=== PATIENT | male | born 1935 | race Caucasian/White ===

== ENCOUNTER 2020-06-11 15:26 | Inpatient (IN) ==
[2020-06-11] MEDS ORDERED: 0.9 % SODIUM CHLORIDE 1,000 ML IV ONE (15:36)
--- NOTE | 2020-06-11 16:11 | Emergency Department Note ---
Weakness HPI General Chief complaint: Weakness Stated complaint: weakness Time Seen by Provider: 06/11/20 15:36 Source: patient Mode of arrival: ambulatory Limitations: no limitations History of Present Illness HPI Narrative: Narrative: 85-year-old male comes in for 1 week history of weakness. He is having diarrhea x5 days. He has significant Parkinson's and has decompensated over the last few days. He is having trouble standing up and walking. He fell 3 times today and has several skin tears on his arms secondary to that. He did not hit his head or lose consciousness. Blood pressure is very low. He arrives with IV fluids going via EMS. Denies fever or recent exposure to Covid. He is requiring oxygen saturations in the low 70s He was seen 2 days ago for routine appointment at the [facility]. His brings in a medicine list from [facility] neurology clinic last month-he sees Dr. Foreman. 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 Related Data Home Medications Medication Instructions Recorded Confirmed albuterol sulfate 90 mcg/actuation 2 puff INHALATION Q4H PRN g 04/22/16 06/11/20 aerosol inhaler montelukast 10 mg tablet 10 mg PO QHS 05/11/16 06/11/20 gabapentin 300 mg capsule 300 mg PO BID cap 07/05/17 01/16/20 amlodipine 5 mg tablet 5 mg PO QDAY 12/24/18 06/11/20 budesonide-formoterol HFA 160 2 puff INHALATION BID 12/24/18 06/11/20 mcg-4.5 mcg/actuation aerosol inhaler losartan 100 mg tablet 100 mg PO QDAY 12/24/18 06/11/20 lutein 10 mg tablet 10 mg PO QDAY 12/24/18 06/11/20 nitroglycerin 0.4 mg sublingual 0.4 mg SUBLINGUAL ONCE PRN tab 12/24/18 01/16/20 tablet ropinirole 0.25 mg tablet 0.25 mg PO BID tab 12/24/18 06/11/20 rosuvastatin 10 mg tablet 10 mg PO QDAY 12/24/18 06/11/20 isosorbide mononitrate 30 mg 30 mg PO QDAY tab 01/18/19 01/16/20 tablet,extended release 24 hr omeprazole 20 mg capsule,delayed 20 mg PO QDAY cap 01/18/19 01/16/20 release tretinoin 0.05 % topical cream 1 applic TOPICAL QHS PRN 03/20/19 01/16/20 citalopram 10 mg PO QDAY 06/11/20 06/11/20 coenzyme Q10 10 mg PO ONCE 06/11/20 06/11/20 Allergies Allergy/AdvReac Type Severity Reaction Status Date / Time simvastatin Allergy Unknown Unknown Verified 01/16/20 15:54 statins AdvReac Intermediate Cramping Uncoded 01/16/20 12:52 of the Muscles Review of Systems ROS ROS Narrative: Narrative: All systems ED: reviewed and negative except as stated. PFSH Narrative Patient History Narrative: Narrative: Medical/Surgical/Family History All Active Problems (Updated 06/11/20 @ 17:52 by Cameron Chang MD) Fall (Acute) Acute hypotension (Acute) Skin tear of forearm without complication (Acute) Respiratory failure (Acute) Acute renal failure (Acute) Benign hypertension with CKD (chronic kidney disease) stage III (Chronic) Laceration (Acute) Chronic kidney disease, stage III (moderate) (Chronic) Gastric diverticulum (Chronic) Hepatic cyst (Chronic) Ingrown toenail (Chronic) Colon malignancy (Chronic) Diverticulosis (Chronic) Sleep apnea (Chronic) 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) Hyperlipidemia (Chronic) Erectile dysfunction (Chronic) Pacemaker (Chronic) Carotid bruit (Chronic) Hypertension (Chronic) Tremor (Chronic) Muscle weakness (Chronic) 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) Salivary gland disturbance (Chronic) Paresthesia (Chronic) Dysphagia (Chronic) Abnormal gait (Chronic) Parkinsonism (Chronic) Tinea pedis (Chronic) Callus of foot (Chronic) Onychomycosis (Chronic) Metatarsalgia (Chronic) Hallux limitus (Chronic) Hallux valgus with bunions (Chronic) Neuropathy (Chronic) Actinic keratosis (Chronic) Lentigo (Chronic) Hemangioma (Chronic) Neoplasm of skin (Chronic) Seborrheic keratosis (Chronic) Skin cancer (Chronic) Interstitial pulmonary disease (Chronic) Chest pain (Chronic) Asthma (Chronic) Bronchitis (Chronic) Gastroesophageal reflux (Chronic) Hypercholesterolemia (Chronic) Hypertension, essential, benign (Chronic) History of prostate cancer (Chronic 12/03/12) Malignant neoplasm prostate (Chronic) Benign neoplasm of skin (Chronic) Urethral stricture, postoperative (Chronic) Urinary incontinence (Chronic) Medical History Abnormal gait (Chronic) Actinic keratosis (Chronic) Asthma (Chronic) Benign neoplasm of skin (Chronic) Bronchitis (Chronic) Callus of foot (Chronic) Carotid bruit (Chronic) Colon malignancy (Chronic) Diverticulosis (Chronic) Dysphagia (Chronic) Erectile dysfunction (Chronic) Gastric diverticulum (Chronic) Gastroesophageal reflux (Chronic) Hallux limitus (Chronic) Hallux valgus with bunions (Chronic) Hemangioma (Chronic) Hepatic cyst (Chronic) History of prostate cancer (Chronic 12/03/12) Hypercholesterolemia (Chronic) Hyperlipidemia (Chronic) Hypertension (Chronic) Hypertension, essential, benign (Chronic) Ingrown toenail (Chronic) Interstitial pulmonary disease (Chronic) Lentigo (Chronic) Lumbosacral disc herniation (Chronic) Malignant neoplasm prostate (Chronic) Metatarsalgia (Chronic) Muscle weakness (Chronic) Neoplasm of skin (Chronic) Neuropathy (Chronic) Onychomycosis (Chronic) Pacemaker (Chronic) Paresthesia (Chronic) Parkinsonism (Chronic) 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) Salivary gland disturbance (Chronic) Seborrheic keratosis (Chronic) Skin cancer (Chronic) Sleep apnea (Chronic) Tinea pedis (Chronic) Tremor (Chronic) Urethral stricture, postoperative (Chronic) Urinary incontinence (Chronic) Surgical History History of appendectomy (Chronic ~1938) History of cataract surgery (Chronic ~1987) History of colon resection (Chronic ~1985) History of prostatectomy (Chronic ~1989) History of surgery (Chronic ~02/27/12) Left Clavicle Excision Neck Excision Hx of arterial dissection (Chronic) Hx of CABG (Chronic) No significant past surgical history (Inactive) S/P cataract surgery (Chronic) S/P placement of cardiac pacemaker (Chronic) 2014 Status post fracture of pelvis (Chronic) Family History Son Heart disease Daughter COPD (chronic obstructive pulmonary disease) Social History Smoking Status: Former smoker Alcohol Intake Frequency: 2+ drinks per day Substance Use: does not use Exam Narrative Narrative: Narrative: Thin male no acute distress. Soft-spoken consistent with his Parkinson's. He has a resting tremor. Normocephalic atraumatic. Conjunctive are clear sclerae white nonicteric. No nasal discharge or congestion. Wearing nasal cannula oxygen. Oropharynx pink and moist. Neck is supple without lymphadenopathy or thyromegaly. Heart is regular rate and rhythm. No murmur appreciated. Lungs are clear to auscultation bilaterally except for the bilateral lower pop which do have some subtle crackles. His hands are cold so it is difficult to get a good Plath on the pulse oximeter. Abdomen is soft nontender not distended. No peritoneal signs or guarding. No pedal edema. On his left arm he is got several skin tears 1 on the triceps area and one on the lateral forearm proximally. These were bandaged. General Limitations: no limitations Course Vital Signs Vital signs: Vital Signs Temperature 97.7 F 06/11/20 15:28 Pulse Rate 79 06/11/20 15:28 Respiratory Rate 18 06/11/20 15:28 Blood Pressure 89/53 06/11/20 15:28 Pulse Oximetry (%) 93 06/11/20 15:28 Temperature 97.7 F 06/11/20 15:28 Pulse Rate 73 06/11/20 17:16 Respiratory Rate 13 06/11/20 17:16 Blood Pressure 104/46 06/11/20 17:16 Pulse Oximetry (%) 100 06/11/20 17:16 [facility] MDM Narrative Medical decision making narrative: Narrative: He does not complain of any other injuries besides the skin tears on his arm. Concern for weakness and unable to walk over the last week. However this sounds compatible with dehydration from diarrhea, with subsequent hypotension. Chest x-ray shows possible left lower lobe infiltrate but this is equivocal. EKG is unrevealing. laboratory is ordered we will continue fluids. Melva testing for Covid is negative. ABG shows a pH of 7.32 with a PCO2 of 50 PO2 136 at 6 L-respiratory failure with hypoxia hypercapnia and respiratory acidosis. He is a former smoker so is likely a COPD/asthma component to this. We will order a CT scan of the chest no contrast as he has chronic kidney disease. We will get blood cultures and cover him with antibiotics just in case this is sepsis-although at this time I do not see an obvious infection-save the diarrhea. Start Vanco and Zosyn . we will also order [facility] for C. difficile. Blood pressure is responding appropriately to fluids and he does not require pressors at this time Sack Sorter film of the CT of the chest shows dilated loops of small bowel so x-ray series is ordered. Creatinine came back at 2.8 which is acute renal failure. He is got some mild hyperkalemia. I discussed these results with the patient and his . At this time he is DNR/DNI but he is okay with BiPAP if needed. Discussed situation with Dr. Cedillo, radiologist as were trying to sort out whether this is a metabolic acidosis or respiratory acidosis or both. At this time the chest x-ray and chest CT did not show any cardiopulmonary disease that is acute. But blood gas certainly shows an acidosis with hypercapnia and hypoxia-requiring 6 L of oxygen per nasal cannula. As his creatinine is up we cannot do CT of the abdomen pelvis contrast but Dr. Cedillo recommended that we can do oral water as a contrast medium. We will get the scan done to further sort out if he is got a pseudoblockage or some other thing going on in his belly. Consider also Dopplers of the legs for DVT but at this time he is not having leg pain Shift change is coming up and patient will be checked out to Dr. Mai for further care and evaluation. Patient will likely have to be transferred as we are short on ICU bed staffing Lab Data Lab results reviewed: Yes I reviewed the patient's lab results. Result diagrams: 06/11/20 15:55 06/11/20 15:55 Labs: Lab Results 06/11/20 06/11/20 06/11/20 Range/Units 15:55 15:55 15:55 WBC 12.3 H (4.5-11.0) K/mcL RBC 4.33 L (4.50-5.90) M/mcL Hgb 13.4 L (13.5-16.5) g/dL Hct 42.5 (41.0-55.0) % MCV 98.2 (80.0-100.0) fL MCH 30.9 (26.0-34.0) pg MCHC 31.5 (31.0-36.0) g/dL RDW 14.6 H (11.5-14.5) % Plt Count 219 (140-440) K/mcL MPV 9.7 (7.4-10.4) fL Neut % (Auto) 81.5 H (38.0-78.0) % Lymph % (Auto) 10.3 L (15.0-49.0) % [place] % (Auto) 6.8 (1.0-12.0) % Eos % (Auto) 0.9 (0.0-7.0) % Baso % (Auto) 0.5 (0.0-2.0) % Lymph # (Auto) 1.27 L (1.50-4.80) K/mcL [place] # (Auto) 0.84 (0.10-0.90) K/mcL Eos # (Auto) 0.11 (0.00-0.70) K/mcL Baso # (Auto) 0.06 (0.00-0.20) K/mcL Absolute Neutrophils 10.00 H (1.80-8.00) K/mcL VBG Lactic Acid 1.9 (0.5-2.0) mmol/L Sodium 137 (133-145) mmol/L Potassium 5.2 H (3.3-5.1) mmol/L Chloride 98 (96-108) mmol/L Carbon Dioxide 24 (22-30) mmol/L Anion Gap 15.0 (8.0-16.0) BUN 50 H (8-23) mg/dL Creatinine 2.8 H (0.7-1.2) mg/dL GFR Calculation 19 Glucose 123 H (70-105) mg/dL Calcium 9.1 (8.6-10.4) mg/dL Magnesium 2.3 (1.6-2.5) mg/dL Total Bilirubin 0.5 (0.1-1.0) mg/dL AST 14 (<40) U/L ALT 13 (<40) U/L Alkaline Phosphatase 70 (39-117) U/L Total Creatine Kinase (24-195) U/L Troponin T (<0.03) ng/mL C-Reactive Protein 3.40 H (0.03-0.80) mg/dL NT-Pro-B Natriuret Pep 360.6 (<450.0) pg/mL Total Protein 5.9 (5.9-8.4) gm/dL Albumin 3.1 L (3.2-5.2) gm/dL Globulin 2.8 (2.2-3.7) gm/dL Albumin/Globulin Ratio 1.1 (1.0-2.3) TSH 1.55 (0.27-5.01) uIU/mL 06/11/20 06/11/20 Range/Units 15:55 15:55 WBC (4.5-11.0) K/mcL RBC (4.50-5.90) M/mcL Hgb (13.5-16.5) g/dL Hct (41.0-55.0) % MCV (80.0-100.0) fL MCH (26.0-34.0) pg MCHC (31.0-36.0) g/dL RDW (11.5-14.5) % Plt Count (140-440) K/mcL MPV (7.4-10.4) fL Neut % (Auto) (38.0-78.0) % Lymph % (Auto) (15.0-49.0) % [place] % (Auto) (1.0-12.0) % Eos % (Auto) (0.0-7.0) % Baso % (Auto) (0.0-2.0) % Lymph # (Auto) (1.50-4.80) K/mcL [place] # (Auto) (0.10-0.90) K/mcL Eos # (Auto) (0.00-0.70) K/mcL Baso # (Auto) (0.00-0.20) K/mcL Absolute Neutrophils (1.80-8.00) K/mcL VBG Lactic Acid (0.5-2.0) mmol/L Sodium (133-145) mmol/L Potassium (3.3-5.1) mmol/L Chloride (96-108) mmol/L Carbon Dioxide (22-30) mmol/L Anion Gap (8.0-16.0) BUN (8-23) mg/dL Creatinine (0.7-1.2) mg/dL GFR Calculation Glucose (70-105) mg/dL Calcium (8.6-10.4) mg/dL Magnesium (1.6-2.5) mg/dL Total Bilirubin (0.1-1.0) mg/dL AST (<40) U/L ALT (<40) U/L Alkaline Phosphatase (39-117) U/L Total Creatine Kinase 38 (24-195) U/L Troponin T 0.05 H* (<0.03) ng/mL C-Reactive Protein (0.03-0.80) mg/dL NT-Pro-B Natriuret Pep (<450.0) pg/mL Total Protein (5.9-8.4) gm/dL Albumin (3.2-5.2) gm/dL Globulin (2.2-3.7) gm/dL Albumin/Globulin Ratio (1.0-2.3) TSH (0.27-5.01) uIU/mL Radiology Data Radiology results reviewed: Yes I reviewed the patient's radiology results. Radiology results narrative: Chest x-ray :mostly clear lungs with evidence of previous open heart surgery and pacemaker. Possible left lower lung infiltrate. When compared to previous this is equivocal CT scan of the chest as above. X-ray of the abdomen shows ileus pattern EKG Data EKG #1: EKG attestation: Yes I reviewed and interpreted this EKG. and Yes There are no EKG findings of acute coronary syndrome EKG results narrative: He has a pacemaker but currently not being paced. Machine is calling it atrial fibrillation but I am seeing P waves. Suspect sinu s rhythm with a right bundle branch block. Fortunately artifact limits reading. We tried multiple times to get a better EKG but this was difficult secondary to tremor from Parkinson's. Compared this with previous from 18 months ago and this is likely actually a bifascicular block Discharge Plan Patient/Caregiver Discharge Instructions Pt seen by [facility]/PA only: No Clinical Impression: Respiratory failure, Parkinsonism, Fall, Acute hypotension, Skin tear of forearm without complication, Acute renal failure Patient Disposition: Still a Patient Condition: Fair Follow up with: Mariela Chang ARNP [Primary Care Provider] - Prescriptions: No Action albuterol sulfate 90 mcg/actuation HFA aerosol inhaler 2 puff INHALATION Q4H PRN (Reason: Shortness Of Breath) RF: 0 Symbicort 160-4.5 mcg/actuation HFA aerosol inhaler 2 puff INHALATION BID RF: 0 losartan 100 mg tablet 100 mg PO QDAY RF: 0 amlodipine 5 mg tablet 5 mg PO QDAY RF: 0 ropinirole 0.25 mg tablet 0.25 mg PO BID RF: 0 rosuvastatin 10 mg tablet 10 mg PO QDAY RF: 0 nitroglycerin [Nitrostat] 0.4 mg tablet, sublingual 0.4 mg SUBLINGUAL ONCE PRNRF: 0 lutein 10 mg tablet 10 mg PO QDAY RF: 0 tretinoin 0.05 % cream 1 applic TOPICAL QHS PRNRF: 0 isosorbide mononitrate 30 mg tablet extended release 24 hr 30 mg PO QDAY RF: 0 omeprazole 20 mg capsule,delayed release(DR/EC) 20 mg PO QDAY RF: 0 citalopram 10 mg Tablet 10 mg PO QDAY RF: 0 coenzyme Q10 10 mg Capsule 10 mg PO ONCE RF: 0 montelukast [Singulair] 10 mg tablet 10 mg PO QHS RF: 0 gabapentin 300 mg capsule 300 mg PO BID RF: 0
--- NOTE | 2020-06-11 16:26 | XRay Report ---
CLINICAL INFORMATION: weakness COMPARISON: 12/10/2018 FINDINGS: Pacemaker leads in stable satisfactory position. Heart size, mediastinum and pulmonary vessels are normal. Right diaphragm is chronically elevated with minimal bibasilar atelectasis. No effusion IMPRESSION: No acute disease Interpreted and Authenticated by: Anival Cedillo 06/11/20
[2020-06-11 17:03] LABS: Basophils # (Auto) 0.06 K/mcL (0.00-0.20); Basophils % (Auto) 0.5 % (0.0-2.0); Eosinophils # (Auto) 0.11 K/mcL (0.00-0.70); Eosinophils % (Auto) 0.9 % (0.0-7.0); Hematocrit 42.5 % (41.0-55.0); Hemoglobin 13.4 g/dL (13.5-16.5); Lymphocytes # (Auto) 1.27 K/mcL (1.50-4.80); Lymphocytes % (Auto) 10.3 % (15.0-49.0); Mean Cell Volume 98.2 fL (80.0-100.0); Mean Corpuscular HGB Conc 31.5 g/dL (31.0-36.0); Mean Platelet Volume 9.7 fL (7.4-10.4); Monocytes # (Auto) 0.84 K/mcL (0.10-0.90); Monocytes % (Auto) 6.8 % (1.0-12.0); Neutrophils % (Auto) 81.5 % (38.0-78.0); Platelet Count 219 K/mcL (140-440); RBC 4.33 M/mcL (4.50-5.90); Red Cell Distribution Width 14.6 % (11.5-14.5); WBC 12.3 K/mcL (4.5-11.0)
[2020-06-11 17:12] LABS: proBNP 360.6 pg/mL (<450.0)
[2020-06-11] MEDS ORDERED: PIPERACILLIN SODIUM/TAZOBACTAM 3.375 GM in DEXTROSE 5% IN WATER 50 ML IV ONE (17:14)
[2020-06-11] MEDS ORDERED: VANCOMYCIN 1,000 MG in 0.9 % SODIUM CHLORIDE 250 ML IV ONE (17:14)
[2020-06-11 17:24] LABS: ALT/SGPT 13 U/L (<40); AST/SGOT 14 U/L (<40); Albumin 3.1 gm/dL (3.2-5.2); Albumin/Globulin Ratio 1.1 (1.0-2.3); Alkaline Phosphatase 70 U/L (39-117); Bilirubin,Total 0.5 mg/dL (0.1-1.0); Blood Urea Nitrogen 50 mg/dL (8-23); Calcium 9.1 mg/dL (8.6-10.4); Carbon Dioxide 24 mmol/L (22-30); Chloride 98 mmol/L (96-108); Globulin 2.8 gm/dL (2.2-3.7); Glomerular Filtration Rate 19; Glucose 123 mg/dL (70-105); Thyroid Stimulating Hormone 1.55 uIU/mL (0.27-5.01)
--- NOTE | 2020-06-11 17:58 | Cat Scan Report ---
CLINICAL INFORMATION: Dyspnea COMPARISON: None TECHNIQUE: 0.625 mm axial slices were obtained from the lung apices through the bases without intravenous contrast. 2.5 mm Sagittal, coronal and axial reformatted images were processed and reviewed at bone, lung and soft tissue windows. 7 mm axial MIP images were also reconstructed to optimize pulmonary nodule detection.The exam was performed using radiation dose optimization techniques including, but not limited to, automated exposure control, adjustment of the mA and/or kV according to patient size and use of iterative reconstruction technique. FINDINGS: Pulmonary parenchymal windows show moderate periseptal and centrilobular emphysema featuring chronic bronchitis with elevated lung volumes wall thickening dilatation of bronchi. There are scattered bullae in the apical regions and periphery of both lower and right middle lobes. Scattered scarring is also seen in the periphery of the lower lobes with traction bronchiectasis in the distal subsegmental bronchi. There are no infiltrates or significant nodules. Pleural spaces are normal. Mediastinal windows show the heart is mildly enlarged. Valve calcification noted. There is no adenopathy in the mediastinal hilar or axillary region. The esophagus is grossly normal. The noncontrast thoracic aorta and pulmonary arteries are normal in diameter. The thyroid is unremarkable. Bone windows show severe right and moderate left glenohumeral degenerative change. There are no focal osseous lesions Images should the superior abdomen show scattered simple cysts in the liver. There is a 10 cm giant diverticulum projecting from the posterior wall the gastric fundus with rugal fold effacement. IMPRESSION: 1. No acute cardiopulmonary disease. 2. Moderate centrilobular and periseptal emphysema. 3. Cardiomegaly with aortic valve calcification. 4. 10 cm giant diverticulum projecting from the posterior gastric fundus with rugal fold effacement. This is probably clinically insignificant in this elderly gentleman. 5. Scattered small hepatic cysts Interpreted and Authenticated by: Anival Cedillo 06/11/20
--- NOTE | 2020-06-11 18:49 | XRay Report ---
CLINICAL INFORMATION: diarrhea COMPARISON: None. FINDINGS: Small large bowel are dilated to the splenic flexure. Descending and rectosigmoid colon contains no gas. No free air or soft tissue mass. IMPRESSION: Probable atypical ileus. Interpreted and Authenticated by: Anival Cedillo 06/11/20
--- NOTE | 2020-06-11 19:08 | Cat Scan Report ---
CLINICAL INFORMATION: Abdominal pain with metabolic acidosis and abdominal distention. COMPARISON: Abdomen and pelvic CT 09/21/2014 TECHNIQUE: 0.625 mm helical slices were obtained from the mid heart through the subtrochanteric regions. Following reconstruction, 2.5 mm sagittal, coronal and axial reformatted images were processed and reviewed at bone and soft tissue windows.The exam was performed using radiation dose optimization techniques including, but not limited to, automated exposure control, adjustment of the mA and/or kV according to patient size and use of iterative reconstruction technique. FINDINGS: Lung bases show evidence for chronic bronchitis with also scattered bullae in the periphery and scattered scarring. There are no effusions. The heart is moderately enlarged with calcification in the aortic valve. Abdominal images scattered stable cysts throughout the noncontrasted liver ranging up to 15 mm. The gallbladder and bile ducts are normal: CBD is 5 mm. The noncontrasted pancreas, both adrenal glands, kidneys and spleen are unremarkable. The aorta is normal diameter with moderately heavy calcific plaque in the infrarenal region. There is no free air, free fluid or adenopathy Pelvic images show urinary bladder is normal. Radical prostatectomy seen as before. There are multiple sigmoid diverticuli with mild inflammation in the perisigmoid fat in the mid sigmoid colon patible with mild diverticulitis. The right colon is partially resected are anastomosis of the ileum to the mid ascending colon. The stomach small and large bowel are normal caliber - no evidence of bowel obstruction. A 10 cm giant gastric diverticulum projects from the posterior wall of the gastric fundus. It has increased increase in size prior exam. Bone windows show only degenerative change in lumbar spine and the few malunified old fractures of the obturator ring. IMPRESSION: 1. Mild sigmoid diverticulitis. 2. 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 This has increased in size from the previous exam. 3. Partial colectomy changes with cecal resection and ileum preanastomosis the ascending colon. 4. Scattered simple cysts on the liver - stable 5. Emphysema in the lung bases. 6. Radical prostatectomy changes. No evidence of recurrent prostate cancer, adenopathy or metastatic disease 7. 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
--- NOTE | 2020-06-11 19:32 | Emergency Department Note ---
HPI General Chief complaint: Weakness Stated complaint: weakness Time Seen by Provider: 06/11/20 15:36 Source: patient Mode of arrival: ambulatory Limitations: no limitations History of Present Illness HPI Narrative: Narrative: See history and physical dictated by Dr. Chang. I am excepting and taking over care of patient due to change in shift. Related Data Home Medications Medication Instructions Recorded Confirmed albuterol sulfate 90 mcg/actuation 2 puff INHALATION Q4H PRN g 04/22/16 06/11/20 aerosol inhaler montelukast 10 mg tablet 10 mg PO QHS 05/11/16 06/11/20 gabapentin 300 mg capsule 300 mg PO BID cap 07/05/17 01/16/20 amlodipine 5 mg tablet 5 mg PO QDAY 12/24/18 06/11/20 budesonide-formoterol HFA 160 2 puff INHALATION BID 12/24/18 06/11/20 mcg-4.5 mcg/actuation aerosol inhaler losartan 100 mg tablet 100 mg PO QDAY 12/24/18 06/11/20 lutein 10 mg tablet 10 mg PO QDAY 12/24/18 06/11/20 nitroglycerin 0.4 mg sublingual 0.4 mg SUBLINGUAL ONCE PRN tab 12/24/18 01/16/20 tablet ropinirole 0.25 mg tablet 0.25 mg PO BID tab 12/24/18 06/11/20 rosuvastatin 10 mg tablet 10 mg PO QDAY 12/24/18 06/11/20 isosorbide mononitrate 30 mg 30 mg PO QDAY tab 01/18/19 01/16/20 tablet,extended release 24 hr omeprazole 20 mg capsule,delayed 20 mg PO QDAY cap 01/18/19 01/16/20 release tretinoin 0.05 % topical cream 1 applic TOPICAL QHS PRN 03/20/19 01/16/20 citalopram 10 mg PO QDAY 06/11/20 06/11/20 coenzyme Q10 10 mg PO ONCE 06/11/20 06/11/20 Allergies Allergy/AdvReac Type Severity Reaction Status Date / Time simvastatin Allergy Unknown Unknown Verified 01/16/20 15:54 statins AdvReac Intermediate Cramping Uncoded 01/16/20 12:52 of the Muscles Review of Systems ROS ROS Narrative: N[facility]ative: [facility] Narrative Patient History Narrative: Narrative: Medical/Surgical/Family History All Active Problems (Updated 06/11/20 @ 19:32 by Williams Mai DO) Fall (Acute) Acute hypotension (Acute) Skin tear of forearm without complication (Acute) Respiratory failure (Acute) Acute renal failure (Acute) Acute diverticulitis (Acute) DNR no code (do not resuscitate) (Acute) Benign hypertension with CKD (chronic kidney disease) stage III (Chronic) Laceration (Acute) Chronic kidney disease, stage III (moderate) (Chronic) Gastric diverticulum (Chronic) Hepatic cyst (Chronic) Ingrown toenail (Chronic) Colon malignancy (Chronic) Diverticulosis (Chronic) Sleep apnea (Chronic) 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) Hyperlipidemia (Chronic) Erectile dysfunction (Chronic) Pacemaker (Chronic) Carotid bruit (Chronic) Hypertension (Chronic) Tremor (Chronic) Muscle weakness (Chronic) 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) Salivary gland disturbance (Chronic) Paresthesia (Chronic) Dysphagia (Chronic) Abnormal gait (Chronic) Parkinsonism (Chronic) Tinea pedis (Chronic) Callus of foot (Chronic) Onychomycosis (Chronic) Metatarsalgia (Chronic) Hallux limitus (Chronic) Hallux valgus with bunions (Chronic) Neuropathy (Chronic) Actinic keratosis (Chronic) Lentigo (Chronic) Hemangioma (Chronic) Neoplasm of skin (Chronic) Seborrheic keratosis (Chronic) Skin cancer (Chronic) Interstitial pulmonary disease (Chronic) Chest pain (Chronic) Asthma (Chronic) Bronchitis (Chronic) Gastroesophageal reflux (Chronic) Hypercholesterolemia (Chronic) Hypertension, essential, benign (Chronic) History of prostate cancer (Chronic 12/03/12) Malignant neoplasm prostate (Chronic) Benign neoplasm of skin (Chronic) Urethral stricture, postoperative (Chronic) Urinary incontinence (Chronic) Medical History Abnormal gait (Chronic) Actinic keratosis (Chronic) Asthma (Chronic) Benign neoplasm of skin (Chronic) Bronchitis (Chronic) Callus of foot (Chronic) Carotid bruit (Chronic) Colon malignancy (Chronic) Diverticulosis (Chronic) Dysphagia (Chronic) Erectile dysfunction (Chronic) Gastric diverticulum (Chronic) Gastroesophageal reflux (Chronic) Hallux limitus (Chronic) Hallux valgus with bunions (Chronic) Hemangioma (Chronic) Hepatic cyst (Chronic) History of prostate cancer (Chronic 12/03/12) Hypercholesterolemia (Chronic) Hyperlipidemia (Chronic) Hypertension (Chronic) Hypertension, essential, benign (Chronic) Ingrown toenail (Chronic) Interstitial pulmonary disease (Chronic) Lentigo (Chronic) Lumbosacral disc herniation (Chronic) Malignant neoplasm prostate (Chronic) Metatarsalgia (Chronic) Muscle weakness (Chronic) Neoplasm of skin (Chronic) Neuropathy (Chronic) Onychomycosis (Chronic) Pacemaker (Chronic) Paresthesia (Chronic) Parkinsonism (Chronic) 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) Salivary gland disturbance (Chronic) Seborrheic keratosis (Chronic) Skin cancer (Chronic) Sleep apnea (Chronic) Tinea pedis (Chronic) Tremor (Chronic) Urethral stricture, postoperative (Chronic) Urinary incontinence (Chronic) Surgical History History of appendectomy (Chronic ~193) History of cataract surgery (Chronic ~1987) History of colon resection (Chronic ~1985) History of prostatectomy (Chronic ~1989) History of surgery (Chronic ~02/27/12) Left Clavicle Excision Neck Excision Hx of arterial dissection (Chronic) Hx of CABG (Chronic) No significant past surgical history (Inactive) S/P cataract surgery (Chronic) S/P placement of cardiac pacemaker (Chronic) 2014 Status post fracture of pelvis (Chronic) Family History Son Heart disease Daughter COPD (chronic obstructive pulmonary disease) Social History Smoking Status: Former smoker Alcohol Intake Frequency: 2+ drinks per day Substance Use: does not use Exam Narrative Narrative: Narrative: General Limitations: no limitations Course Vital Signs Vital signs: Vital Signs Temperature 97.7 F 06/11/20 15:28 Pulse Rate 79 06/11/20 15:28 Respiratory Rate 18 06/11/20 15:28 Blood Pressure 89/53 06/11/20 15:28 Pulse Oximetry (%) 93 06/11/20 15:28 Temperature 97.7 F 06/11/20 15:28 Pulse Rate 70 06/11/20 19:01 Respiratory Rate 26 H 06/11/20 19:01 Blood Pressure 95/52 06/11/20 19:01 Pulse Oximetry (%) 97 06/11/20 19:01 MDM MDM Narrative Medical decision making narrative: Narrative: Patient's history and chart review includes: New onset acute renal failure with creatinine going from 1.2-2.8. Had hypotension. Had an ileus. CT scan abdomen and pelvis due to an ileus on the plain films was pending which now shows mild sigmoid diverticulitis, giant g astric diverticulum, history of partial colectomy, history of radical prostatectomy, undescended testicle on the right side. White count and labs as below. 7:50 PM I spoke with Dr. Vigil. He is willing to accept this patient. Possible sepsis from mild diverticulitis? However, clinical factors suggesting that this was not sepsis include he did not have fever, white count was only slightly elevated, was not tachycardic, and the explanation for his hypotension would be poor oral intake, hypovolemia as indicated by the response and the significant change in his creatinine. Patient will be admitted to a monitored bed. Lab Data Result diagrams: 06/11/20 15:55 06/11/20 15:55 Labs: Lab Results 06/11/20 06/11/20 06/11/20 Range/Units 15:55 15:55 15:55 WBC 12.3 H (4.5-11.0) K/mcL RBC 4.33 L (4.50-5.90) M/mcL Hgb 13.4 L (13.5-16.5) g/dL Hct 42.5 (41.0-55.0) % MCV 98.2 (80.0-100.0) fL MCH 30.9 (26.0-34.0) pg MCHC 31.5 (31.0-36.0) g/dL RDW 14.6 H (11.5-14.5) % Plt Count 219 (140-440) K/mcL MPV 9.7 (7.4-10.4) fL Neut % (Auto) 81.5 H (38.0-78.0) % Lymph % (Auto) 10.3 L (15.0-49.0) % [place] % (Auto) 6.8 (1.0-12.0) % Eos % (Auto) 0.9 (0.0-7.0) % Baso % (Auto) 0.5 (0.0-2.0) % Lymph # (Auto) 1.27 L (1.50-4.80) K/mcL [place] # (Auto) 0.84 (0.10-0.90) K/mcL Eos # (Auto) 0.11 (0.00-0.70) K/mcL Baso # (Auto) 0.06 (0.00-0.20) K/mcL Absolute Neutrophils 10.00 H (1.80-8.00) K/mcL VBG Lactic Acid 1.9 (0.5-2.0) mmol/L Sodium 137 (133-145) mmol/L Potassium 5.2 H (3.3-5.1) mmol/L Chloride 98 (96-108) mmol/L Carbon Dioxide 24 (22-30) mmol/L Anion Gap 15.0 (8.0-16.0) BUN 50 H (8-23) mg/dL Creatinine 2.8 H (0.7-1.2) mg/dL GFR Calculation 19 Glucose 123 H (70-105) mg/dL Calcium 9.1 (8.6-10.4) mg/dL Magnesium 2.3 (1.6-2.5) mg/dL Total Bilirubin 0.5 (0.1-1.0) mg/dL AST 14 (<40) U/L ALT 13 (<40) U/L Alkaline Phosphatase 70 (39-117) U/L Total Creatine Kinase (24-195) U/L Troponin T (<0.03) ng/mL C-Reactive Protein 3.40 H (0.03-0.80) mg/dL NT-Pro-B Natriuret Pep 360.6 (<450.0) pg/mL Total Protein 5.9 (5.9-8.4) gm/dL Albumin 3.1 L (3.2-5.2) gm/dL Globulin 2.8 (2.2-3.7) gm/dL Albumin/Globulin Ratio 1.1 (1.0-2.3) TSH 1.55 (0.27-5.01) uIU/mL 06/11/20 06/11/20 Range/Units 15:55 15:55 WBC (4.5-11.0) K/mcL RBC (4.50-5.90) M/mcL Hgb (13.5-16.5) g/dL Hct (41.0-55.0) % MCV (80.0-100.0) fL MCH (26.0-34.0) pg MCHC (31.0-36.0) g/dL RDW (11.5-14.5) % Plt Count (140-440) K/mcL MPV (7.4-10.4) fL Neut % (Auto) (38.0-78.0) % Lymph % (Auto) (15.0-49.0) % [place] % (Auto) (1.0-12.0) % Eos % (Auto) (0.0-7.0) % Baso % (Auto) (0.0-2.0) % Lymph # (Auto) (1.50-4.80) K/mcL [place] # (Auto) (0.10-0.90) K/mcL Eos # (Auto) (0.00-0.70) K/mcL Baso # (Auto) (0.00-0.20) K/mcL Absolute Neutrophils (1.80-8.00) K/mcL VBG Lactic Acid (0.5-2.0) mmol/L Sodium (133-145) mmol/L Potassium (3.3-5.1) mmol/L Chloride (96-108) mmol/L Carbon Dioxide (22-30) mmol/L Anion Gap (8.0-16.0) BUN (8-23) mg/dL Creatinine (0.7-1.2) mg/dL GFR Calculation Glucose (70-105) mg/dL Calcium (8.6-10.4) mg/dL Magnesium (1.6-2.5) mg/dL Total Bilirubin (0.1-1.0) mg/dL AST (<40) U/L ALT (<40) U/L Alkaline Phosphatase (39-117) U/L Total Creatine Kinase 38 (24-195) U/L Troponin T 0.05 H* (<0.03) ng/mL C-Reactive Protein (0.03-0.80) mg/dL NT-Pro-B Natriuret Pep (<450.0) pg/mL Total Protein (5.9-8.4) gm/dL Albumin (3.2-5.2) gm/dL Globulin (2.2-3.7) gm/dL Albumin/Globulin Ratio (1.0-2.3) TSH (0.27-5.01) uIU/mL Discharge Plan Patient/Caregiver Discharge Instructions Pt seen by STEEL ERECTING PUSHER/PA only: No Clinical Impression: Acute hypotension, Acute diverticulitis, DNR no code (do not resuscitate) Respiratory failure Qualifiers: Chronicity: acute Respiratory failure complication: hypoxia and hypercapnia Qualified Code(s): J96.01 - Acute respiratory failure with hypoxia Parkinsonism Qualifiers: Parkinsonism type: unspecified Qualified Code(s): G20 - Parkinson's disease Fall Qualifiers: Encounter type: initial encounter Qualified Code(s): W19.XXXA - Unspecified fall, initial encounter Skin tear of forearm without complication Qualifiers: Encounter type: initial encounter Laterality: left Qualified Code(s): S51.812A - Laceration without foreign body of left forearm, initial encounter Acute renal failure Qualifiers: Acute renal failure type: unspecified Qualified Code(s): N17.9 - Acute kidney failure, unspecified Patient Disposition: Xfer As Inpt ([facility]) Condition: Fair Follow up with: Mariela Chang ARNP [Primary Care Provider] - Prescriptions: No Action albuterol sulfate 90 mcg/actuation HFA aerosol inhaler 2 puff INHALATION Q4H PRN (Reason: Shortness Of Breath) RF: 0 Symbicort 160-4.5 mcg/actuation HFA aerosol inhaler 2 puff INHALATION BID RF: 0 losartan 100 mg tablet 100 mg PO QDAY RF: 0 amlodipine 5 mg tablet 5 mg PO QDAY RF: 0 ropinirole 0.25 mg tablet 0.25 mg PO BID RF: 0 rosuvastatin 10 mg tablet 10 mg PO QDAY RF: 0 nitroglycerin [Nitrostat] 0.4 mg tablet, sublingual 0.4 mg SUBLINGUAL ONCE PRNRF: 0 lutein 10 mg tablet 10 mg PO QDAY RF: 0 tretinoin 0.05 % cream 1 applic TOPICAL QHS PRNRF: 0 isosorbide mononitrate 30 mg tablet extended release 24 hr 30 mg PO QDAY RF: 0 omeprazole 20 mg capsule,delayed release(DR/EC) 20 mg PO QDAY RF: 0 citalopram 10 mg Tablet 10 mg PO QDAY RF: 0 coenzyme Q10 10 mg Capsule 10 mg PO ONCE RF: 0 montelukast [Singulair] 10 mg tablet 10 mg PO QHS RF: 0 gabapentin 300 mg capsule 300 mg PO BID RF: 0
[2020-06-11] MEDS ORDERED: METOPROLOL TARTRATE 25 MG TABLET PO ONE (19:59)
[2020-06-11 20:10] LABS: Appearance,Urine CLEAR (Clear); Bilirubin,Urine Negative (Negative); Color,Urine YELLOW; Culture Indicated,Urine No; Glucose,Urine (UA) Negative (Negative); Ketones,Urine Negative (Negative); Leukocyte Esterase,Urine Negative /ug (Negative); Nitrate,Urine Negative (Negative); Protein,Urine Negative (Negative); Specific Gravity,Urine 1.017 (1.000-1.035); Urine Blood Negative (Negative); Urobilinogen,Urine Negative
--- NOTE | 2020-06-11 20:17 | Nephrology History & Physical ---
HPI History of Present Illness Patient information: Note initiated : 06/11/20 at 8:09 pm Service Date, if different from initiated Date: [] Patient: Danny Pickard a 85 y/o M admitted on for weakness. Chief Complaint: Weakness, diarrhea lightheadedness History of present illness: Mr. Pickard is a 85 year old M with a history of CKD stage III, colon cancer status post resection/CAD with pacemaker/HTN/anxiety disorder and RAD who lives with his at [facility] [place]. He was in his baseline state of health until roughly5 days prior to presentation started experiencing abdominal discomfort along with diarrhea 2-3 times a day. Symptoms progressed with increasing nausea, loss of appetite, weakness and lightheadedness limiting his activities of daily living. There after he sustained falls on 3 different occasion fortunately did not sustain major injuries. EMS was called and was found with low blood pressures and saturation. Subseq uently brought into the ER Initial work-up was consistent with acute diverticulitis on CT abdomen/white count 12.6, ABG 7.3 2/50/156 on 6 L oxygen, creatinine 2.8(baseline 1.4). Cardiac troponin 0.05 in the setting of renal failure. Patient was started on aggressive crystalloid/antibiotic coverage. Subsequently hospitalist service was consulted At the time of my evaluation patient is accompanied with his . He was able to answer most of the questions. He is in moderate distress but denies abdominal pain/headache photophobia but endorses lightheadedness and dizziness each time he tries to get up. He denies vertigo. He denies recent sick contacts or changes in medications. He denies rash, fever, chills, productive cough, photophobia or neck stiffness Review of systems 10 point review system was performed and is negative except for ones discussed above PFSH PFSH All Active Problems (Updated 06/11/20 @ 19:32 by Williams Mai DO) Fall (Acute) Acute hypotension (Acute) Skin tear of forearm without complication (Acute) Respiratory failure (Acute) Acute renal failure (Acute) Acute diverticulitis (Acute) DNR no code (do not resuscitate) (Acute) Benign hypertension with CKD (chronic kidney disease) stage III (Chronic) Laceration (Acute) Chronic kidney disease, stage III (moderate) (Chronic) Gastric diverticulum (Chronic) Hepatic cyst (Chronic) Ingrown toenail (Chronic) Colon malignancy (Chronic) Diverticulosis (Chronic) Sleep apnea (Chronic) 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) Hyperlipidemia (Chronic) Erectile dysfunction (Chronic) Pacemaker (Chronic) Carotid bruit (Chronic) Hypertension (Chronic) Tremor (Chronic) Muscle weakness (Chronic) 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) Salivary gland disturbance (Chronic) Paresthesia (Chronic) Dysphagia (Chronic) Abnormal gait (Chronic) Parkinsonism (Chronic) Tinea pedis (Chronic) Callus of foot (Chronic) Onychomycosis (Chronic) Metatarsalgia (Chronic) Hallux limitus (Chronic) Hallux valgus with bunions (Chronic) Neuropathy (Chronic) Actinic keratosis (Chronic) Lentigo (Chronic) Hemangioma (Chronic) Neoplasm of skin (Chronic) Seborrheic keratosis (Chronic) Skin cancer (Chronic) Interstitial pulmonary disease (Chronic) Chest pain (Chronic) Asthma (Chronic) Bronchitis (Chronic) Gastroesophageal reflux (Chronic) Hypercholesterolemia (Chronic) Hypertension, essential, benign (Chronic) History of prostate cancer (Chronic 12/03/12) Malignant neoplasm prostate (Chronic) Benign neoplasm of skin (Chronic) Urethral stricture, postoperative (Chronic) Urinary incontinence (Chronic) Medical History Abnormal gait (Chronic) Actinic keratosis (Chronic) Asthma (Chronic) Benign neoplasm of skin (Chronic) Bronchitis (Chronic) Callus of foot (Chronic) Carotid bruit (Chronic) Colon malignancy (Chronic) Diverticulosis (Chronic) Dysphagia (Chronic) Erectile dysfunction (Chronic) Gastric diverticulum (Chronic) Gastroesophageal reflux (Chronic) Hallux limitus (Chronic) Hallux valgus with bunions (Chronic) Hemangioma (Chronic) Hepatic cyst (Chronic) History of prostate cancer (Chronic 12/03/12) Hypercholesterolemia (Chronic) Hyperlipidemia (Chronic) Hypertension (Chronic) Hypertension, essential, benign (Chronic) Ingrown toenail (Chronic) Interstitial pulmonary disease (Chronic) Lentigo (Chronic) Lumbosacral disc herniation (Chronic) Malignant neoplasm prostate (Chronic) Metatarsalgia (Chronic) Muscle weakness (Chronic) Neoplasm of skin (Chronic) Neuropathy (Chronic) Onychomycosis (Chronic) Pacemaker (Chronic) Paresthesia (Chronic) Parkinsonism (Chronic) 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) Salivary gland disturbance (Chronic) Seborrheic keratosis (Chronic) Skin cancer (Chronic) Sleep apnea (Chronic) Tinea pedis (Chronic) Tremor (Chronic) Urethral stricture, postoperative (Chronic) Urinary incontinence (Chronic) Surgical History History of appendectomy (Chronic ~193) History of cataract surgery (Chronic ~1987) History of colon resection (Chronic ~1985) History of prostatectomy (Chronic ~1989) History of surgery (Chronic ~02/27/12) Left Clavicle Excision Neck Excision Hx of arterial dissection (Chronic) Hx of CABG (Chronic) No significant past surgical history (Inactive) S/P cataract surgery (Chronic) S/P placement of cardiac pacemaker (Chronic) 2014 Status post fracture of pelvis (Chronic) Family History Son Heart disease Daughter COPD (chronic obstructive pulmonary disease) Social History marital status: smoking status: Former smoker smoking status stop date: 05/29/82 alcohol intake frequency: 2+ drinks per day substance use type: does not use MEDS/ALLERGIES Home Medications and Allergies Home Medications Medication Instructions Recorded Confirmed Type albuterol sulfate 90 mcg/actuation 2 puff INHALATION Q4H PRN g 04/22/16 06/11/20 History aerosol inhaler montelukast 10 mg tablet 10 mg PO QHS 05/11/16 06/11/20 History gabapentin 300 mg capsule 300 mg PO BID cap 07/05/17 01/16/20 History amlodipine 5 mg tablet 5 mg PO QDAY 12/24/18 06/11/20 History budesonide-formoterol HFA 160 2 puff INHALATION BID 12/24/18 06/11/20 History mcg-4.5 mcg/actuation aerosol inhaler losartan 100 mg tablet 100 mg PO QDAY 12/24/18 06/11/20 History lutein 10 mg tablet 10 mg PO QDAY 12/24/18 06/11/20 History nitroglycerin 0.4 mg sublingual 0.4 mg SUBLINGUAL ONCE PRN tab 12/24/18 01/16/20 History tablet ropinirole 0.25 mg tablet 0.25 mg PO BID tab 12/24/18 06/11/20 History rosuvastatin 10 mg tablet 10 mg PO QDAY 12/24/18 06/11/20 History isosorbide mononitrate 30 mg 30 mg PO QDAY tab 01/18/19 01/16/20 History tablet,extended release 24 hr omeprazole 20 mg capsule,delayed 20 mg PO QDAY cap 01/18/19 01/16/20 History release tretinoin 0.05 % topical cream 1 applic TOPICAL QHS PRN 03/20/19 01/16/20 History citalopram 10 mg PO QDAY 06/11/20 06/11/20 History coenzyme Q10 10 mg PO ONCE 06/11/20 06/11/20 History Allergies Allergy/AdvReac Type Severity Reaction Status Date / Time simvastatin Allergy Unknown Unknown Verified 01/16/20 15:54 statins AdvReac Intermediate Cramping Uncoded 01/16/20 12:52 of the Muscles Physical Examination Vital Signs Vital signs: Temp Pulse Resp BP Pulse Ox 97.7 F 80 27 H 108/62 94 06/11/20 15:28 06/11/20 19:31 06/11/20 19:31 06/11/20 19:31 06/11/20 19:31 Head normocephalic Oral cavity moist No ear nose discharge Eye movement symmetrical Neck supple no lymphadenopathy S1-S2 paced rhythm, pacemaker left anterior chest Nonlabored breathing Nondistended nontender abdomen Skin bruising upper extremity from falls lower extremity no cyanosis clubbing or joint swelling Psych anxious but alert cooperative , GCS 15 neuro normal higher function Results Lab Results Result Diagrams: 06/11/20 15:55 06/11/20 15:55 Lab results: Most recent lab results Calcium 9.1 mg/dL (8.6-10.4) 06/11/20 15:55 Magnesium 2.3 mg/dL (1.6-2.5) 06/11/20 15:55 A/P Narrative A/P Narrative: * Severe sepsis with hypotension and endorgan dysfunction. Secondary to acute diverticulitis. Aggressive crystalloid/admit to ICU. Venous lactate, pancultures, antibiotics, sepsis management per guidelines. Pressors if indicated * Acute diverticulitis start Zosyn. Continue oral clears * Acute renal failure secondary to sepsis endorgan dysfunction.Creatinine 1.4 current creatinine 2.8. * Prerenal azotemia-continue crystalloids * History of hypertension hold antihypertensives until shock resolves * History of reactive airway disease continue bronchodilators * Neuropathy continue gabapentin * History of CAD continue isosorbide/statin. On pacemaker * GERD continue PPI * Restless leg syndrome continue ropinirole * DNR * Reflux heparin Plan * Inpatient ICU admission * Antibiotic coverage/sepsis management per guidelines/crystalloid/pressors if indicated * Monitor renal function * Pre-existing medical condition management home medication except for antihypertensives will be held * Nutrition support/therapies * Discharge planning per case management Time Spent With Patient Time: Total time spent is greater than 50% in coordination of care (as docu mented) at patient's floor/unit and/or counseling patient:
[2020-06-11] MEDS ORDERED: 0.9 % SODIUM CHLORIDE 500 ML IV ONE (21:29)
[2020-06-11] MEDS ORDERED: POTASSIUM CHLORIDE 40 MEQ in DEXTROSE 5% IN WATER 500 ML IV PRN (21:57)
[2020-06-11] MEDS ORDERED: ONDANSETRON 4 MG ODT TABLET SL PRN (21:57)
[2020-06-11] MEDS ORDERED: ACETAMINOPHEN 325 MG TABLET PO PRN (21:57)
[2020-06-11] MEDS ORDERED: BISACODYL 10 MG SUPP.RECT PR PRN (21:57)
[2020-06-11] MEDS ORDERED: ALBUTEROL SULFATE 200 PUFF INHALER INH PRN (21:57)
[2020-06-11] MEDS ORDERED: ONDANSETRON 4 MG/2 ML VIAL IV PRN (21:57)
[2020-06-11] MEDS ORDERED: HYDROmorphone 0.5 MG/0.5 ML SYRINGE IV PRN (21:57)
[2020-06-11] MEDS ORDERED: NOREPINEPHRINE BITARTRATE 8 MG in 0.9 % SODIUM CHLORIDE 242 ML IV PRN (21:57)
[2020-06-11] MEDS ORDERED: ACETAMINOPHEN 650 MG/65 ML BAG IV PRN (21:57)
[2020-06-11] MEDS ORDERED: MAGNESIUM SULFATE 2 GM/50 ML BAG IV PRN (21:57)
[2020-06-11] MEDS ORDERED: POLYETHYLENE GLYCOL 3350 17 GM PACKET PO PRN (21:57)
[2020-06-11] MEDS ORDERED: POTASSIUM CHLORIDE 20 MEQ PACKET PO PRN (21:57)
[2020-06-11] MEDS: rOPINIRole 0.25 MG TABLET PO SCH (22:37)
[2020-06-11] MEDS: MELATONIN 3 MG TABLET PO PRN (22:37)
[2020-06-11] MEDS: HEPARIN 5,000 UNIT/ML VIAL SQ SCH (22:37)
[2020-06-11] MEDS: 0.9 % SODIUM CHLORIDE 1,000 ML IV SCH (22:37)
[2020-06-11] MEDS: SENNOSIDES/DOCUSATE SODIUM 1 TAB TABLET PO SCH (22:38)
[2020-06-11] MEDS: 0.9 % SODIUM CHLORIDE 10 ML SYRINGE IV SCH (22:38)
[2020-06-11] MEDS: DOCUSATE SODIUM 100 MG CAPSULE PO SCH (22:38)
[2020-06-11] MEDS: 0.9 % SODIUM CHLORIDE 250 ML IV SCH (22:38)
[2020-06-12] MEDS ORDERED: PIPERACILLIN SODIUM/TAZOBACTAM 2.25 GM in DEXTROSE 5% IN WATER 50 ML IV SCH (02:00)
[2020-06-12] MEDS: 0.9 % SODIUM CHLORIDE 10 ML SYRINGE IV SCH ×3 (06:11→21:02)
[2020-06-12 06:34] LABS: Basophils # (Auto) 0.04 K/mcL (0.00-0.20); Basophils % (Auto) 0.4 % (0.0-2.0); Eosinophils # (Auto) 0.23 K/mcL (0.00-0.70); Eosinophils % (Auto) 2.5 % (0.0-7.0); Hematocrit 43.1 % (41.0-55.0); Lymphocytes # (Auto) 1.06 K/mcL (1.50-4.80); Lymphocytes % (Auto) 11.6 % (15.0-49.0); Mean Cell Volume 102.9 fL (80.0-100.0); Mean Corpuscular HGB Conc 30.2 g/dL (31.0-36.0); Mean Platelet Volume 9.7 fL (7.4-10.4); Monocytes # (Auto) 0.74 K/mcL (0.10-0.90); Monocytes % (Auto) 8.1 % (1.0-12.0); Neutrophils % (Auto) 77.4 % (38.0-78.0); Platelet Count 180 K/mcL (140-440); RBC 4.19 M/mcL (4.50-5.90); Red Cell Distribution Width 14.9 % (11.5-14.5); WBC 9.2 K/mcL (4.5-11.0)
[2020-06-12 07:13] LABS: ALT/SGPT 10 U/L (<40); AST/SGOT 17 U/L (<40); Albumin 2.3 gm/dL (3.2-5.2); Albumin/Globulin Ratio 0.6 (1.0-2.3); Alkaline Phosphatase 67 U/L (39-117); Bilirubin,Direct < 0.2 mg/dL (<0.3); Bilirubin,Total 0.6 mg/dL (0.1-1.0); Blood Urea Nitrogen 42 mg/dL (8-23); Calcium 8.4 mg/dL (8.6-10.4); Carbon Dioxide 17 mmol/L (22-30); Chloride 108 mmol/L (96-108); Globulin 3.6 gm/dL (2.2-3.7); Glomerular Filtration Rate 26; Glucose 84 mg/dL (70-105); Lactate Dehydrogenase 252 U/L (135-225); Phosphorous 3.7 mg/dL (2.5-4.5); Triglycerides 91 mg/dL (<150); Uric Acid 4.9 mg/dL (2.5-8.0)
[2020-06-12] MEDS: CITALOPRAM 20 MG TABLET PO SCH (08:52)
[2020-06-12] MEDS: rOPINIRole 0.25 MG TABLET PO SCH ×2 (08:52→21:00)
[2020-06-12] MEDS: PIPERACILLIN SODIUM/TAZOBACTAM 2.25 GM in DEXTROSE 5% IN WATER 50 ML IV SCH ×3 (08:52→18:38)
[2020-06-12] MEDS: HEPARIN 5,000 UNIT/ML VIAL SQ SCH ×2 (08:53→21:00)
[2020-06-12] MEDS: DOCUSATE SODIUM 100 MG CAPSULE PO SCH ×2 (09:08→21:00)
[2020-06-12] MEDS: 0.9 % SODIUM CHLORIDE 1,000 ML IV SCH ×2 (09:54→20:37)
[2020-06-12] MEDS: ATORVASTATIN 20 MG TABLET PO SCH (10:48)
[2020-06-12] MEDS: GABAPENTIN 300 MG CAPSULE PO SCH ×2 (10:48→21:00)
[2020-06-12] MEDS: OMEPRAZOLE 20 MG CAPSULE PO SCH (10:48)
[2020-06-12] MEDS: 0.9 % SODIUM CHLORIDE 250 ML IV SCH ×2 (11:10→23:00)
--- NOTE | 2020-06-12 15:44 | Internal Med Progress Note ---
SUBJECTIVE Subjective Patient information: Note initiated : 06/12/20 at 3:39 pm Service Date, if different from initiated Date: [] Patient: Danny Pickard 85 y/o M admitted on 06/11/20 for weakness. Chief Complaint: [] Interval history: Mr. Pickard is a 85 year old M with a history of CKD stage III, colon cancer status post resection/CAD with pacemaker/HTN/anxiety disorder and RAD who lives with his at [facility] at [place]. He was in his baseline state of health until roughly5 days prior to presentation started experiencing abdominal discomfort along with diarrhea 2-3 times a day. Symptoms progressed with increasing nausea, loss of appetite, weakness and lightheadedness limiting his activities of daily living. There after he sustained falls on 3 different occasion fortunately did not sustain major injuries. EMS was called and was found with low blood pressures and saturation. Subsequently brought into the ER Initial work-up was consistent with acute diverticulitis on CT abdomen/white count 12.6, ABG 7.3 2/50/156 on 6 L oxygen, creatinine 2.8(baseline 1.4). Cardiac troponin 0.05 in the setting of renal failure. Patient was started on aggressive crystalloid/antibiotic coverage. Subsequently hospitalist service was consulted At the time of my evaluation patient is accompanied with his . He was able to answer most of the questions. He is in moderate distress but denies abdominal pain/headache photophobia but endorses lightheadedness and dizziness each time he tries to get up. He denies vertigo. He denies recent sick contacts or changes in medications. He denies rash, fever, chills, productive cough, photophobia or neck stiffness 06/12-patient clinically improved. White count down from 12.3-9.2. Renal function improving with creatinine down to 2.2 from 2.8. Improving azotemia. Stable urodynamics. Continuing antibiotic coverage. Intermittently confused but no telemetry events noted. Systolics at goal. Potassium 5.7. Continuing crystalloids. Constitutional Vitals: Vital Signs Temp Pulse Resp BP Pulse Ox 97.7 F 72 26 H 125/88 100 06/12/20 12:01 06/12/20 12:01 06/12/20 12:01 06/12/20 12:06/12/20 12:01 Period Temp Pulse Resp BP Sys/Dominguez Pulse Ox Last 24 Hr 97.3 F-98.4 F 33-154 13-32 79-134/35-88 88-100 Intake and Output 06/12/20 06/12/20 06/12/20 05:59 13:59 21:59 Intake Total 800 1470 Output Total 602 Balance 198 1470 Weight 69.989 kg 69.989 kg Patient Weight 06/13/20 05:59 Weight 69.989 kg Alert and respond to commands Intermittently confused Nonlabored breathing Nondistended nontender abdomen Intake & Output: Intake & Output 06/12/20 06/12/20 06/12/20 05:59 13:59 21:59 Intake Total 800 1470 Output Total 602 Balance 198 1470 Weight 69.989 kg 69.989 kg Intake: IV 800 1050 Sodium Chloride 0.9% 1,000 ml @ 1000 100 mls/hr IV .Q10H [facility] Rx#: [id number] Sodium Chloride 0.9% 500 ml @ 500 Wide Open IV [facility] Rx#: [id number] Zosyn 2.25 gm In Dextrose 5% in 50 50 Water 50 ml @ 100 mls/hr IV Q6H [facility] Rx#:[id number] Vancomycin 1,000 mg In Sodium 250 Chloride 0.9% 250 ml @ 250 mls/ hr IV ONCE ONE Rx#:[id number] Oral 420 Output: Void Amount 200 # of times incontinent of urine 2 Urine/Stool Mix 300 Stool 100 Other: Meal Lunch Percent of Meal Consumed 100% Feeding Ability Independent Urine Appearance Clear Urine Color Straw Urine Odor Strong Stool Size Smear Stool Color Brown Yellow Stool Consistency Liquid Leelee OBJ DATA Labs CBC & Chem 7: 06/12/20 05:15 06/12/20 05:15 Labs: Abnormal Lab Results 06/12/20 06/12/20 06/11/20 05:15 05:15 15:55 WBC RBC 4.19 L Hgb 13.0 L MCV 102.9 H MCHC 30.2 L RDW 14.9 H Neut % (Auto) Lymph % (Auto) 11.6 L Lymph # (Auto) 1.06 L Absolute Neutrophils Potassium 5.7 H Carbon Dioxide 17 L BUN 42 H Creatinine 2.2 H Glucose Calcium 8.4 L Magnesium 2.6 H Lactate Dehydrogenase 252 H Troponin T C-Reactive Protein Albumin 2.3 L Albumin/Globulin Ratio 0.6 L Procalcitonin 0.20 H 06/11/20 06/11/20 06/11/20 15:55 15:55 15:55 WBC 12.3 H RBC 4.33 L Hgb 13.4 L MCV MCHC RDW 14.6 H Neut % (Auto) 81.5 H Lymph % (Auto) 10.3 L Lymph # (Auto) 1.27 L Absolute Neutrophils 10.00 H Potassium 5.2 H Carbon Dioxide BUN 50 H Creatinine 2.8 H Glucose 123 H Calcium Magnesium Lactate Dehydrogenase Troponin T 0.05 H* C-Reactive Protein 3.40 H Albumin 3.1 L Albumin/Globulin Ratio Procalcitonin Meds: Medications Acetaminophen (Tylenol) 650 mg PO Q4-6HP PRN; Protocol PRN Reason: Per Pain Protocol/Fever > 101 Albuterol Sulfate (Ventolin) 2 puff INH Q4HP PRN PRN Reason: Shortness Of Breath Atorvastatin Calcium (Lipitor) 20 mg PO QDAY [facility] Last Admin: 06/12/20 10:48 Dose: 20 mg Documented by: Bisacodyl (Dulcolax) 10 mg LA Q2-3DAYS PRN PRN Reason: Constipation Citalopram Hydrobromide (Celexa) 10 mg PO DAILY [facility] Last Admin: 06/12/20 08:52 Dose: 10 mg Documented by: Docusate Sodium (Colace) 100 mg PO BID [facility] Last Admin: 06/12/20 09:08 Dose: Not Given Documented by: Gabapentin (Neurontin) 300 mg PO BID [facility] Last Admin: 06/12/20 10:48 Dose: 300 mg Documented by: Heparin Sodium (Porcine) (Heparin) 5,000 unit SQ Q12 [facility] Last Admin: 06/12/20 08:53 Dose: 5,000 unit Documented by: Hydromorphone HCl (Dilaudid) 0.25 - 0.5 mg IV Q4HP PRN; Protocol PRN Reason: Per Pain Protocol Potassium Chloride 40 meq/ (Dextrose) 520 mls @ 130 mls/hr IV UD PRN PRN Reason: K+ = or < 3.5 Acetaminophen (Ofirmev) 650 mg in 65 mls @ 130 mls/hr IV Q6HP PRN; Protocol PRN Reason: Per Pain Protocol/Fever > 101 Magnesium Sulfate (Magnesium Sulfate) 2 gm in 50 mls @ 50 mls/hr IV UD PRN PRN Reason: MG = or < 1.7 Sodium Chloride (Sodium Chloride 0.9%) 1,000 mls @ 100 mls/hr IV .Q10H [facility] Last Admin: 06/12/20 09:54 Dose: 100 mls/hr Documented by: Norepinephrine Bitartrate 8 mg (/ Sodium Chloride) 250 mls @ 18.75 mls/hr IV Q14H PRN; Protocol PRN Reason: Keep MAP greater than 65 Sodium Chloride (Sodium Chloride 0.9%) 250 mls @ 20 mls/hr IV .[id number] [facility] Last Admin: 06/12/20 11:10 Dose: Not Given Documented by: Piperacillin Sod/Tazobactam (Sod 2.25 gm/ Dextrose) 50 mls @ 100 mls/hr IV Q6H [facility]; Protocol Last Admin: 06/12/20 13:20 Dose: 100 mls/hr Documented by: Melatonin (Melatonin 3mg Tablet) 3 mg PO HSP PRN PRN Reason: Insomnia Last Admin: 06/11/20 22:37 Dose: 3 mg Documented by: Omeprazole (Prilosec) 20 mg PO ACB [facility] Last Admin: 06/12/20 10:48 Dose: 20 mg Documented by: Ondansetron HCl (Zofran Odt) 4 mg SL Q4-6HP PRN; Protocol PRN Reason: Nausea And Vomiting Ondansetron HCl (Zofran) 4 mg IV Q4-6HP PRN; Protocol PRN Reason: Nausea And Vomiting Polyethylene Glycol (Miralax) 17 gm PO DAILYP PRN PRN Reason: Constipation Potassium Chloride (Klor-Con) 40 meq PO DAILYP PRN PRN Reason: K+ < 3.5 Ropinirole HCl (Requip) 0.25 mg PO BID [facility] Last Admin: 06/12/20 08:52 Dose: 0.25 mg Documented by: Senna/Docusate Sodium (Senna Plus Tablet) 1 tab PO HS [facility] Last Admin: 06/11/20 22:38 Dose: Not Given Documented by: Sodium Chloride (Saline Flush) 10 ml IV Q8 [facility] Last Admin: 06/12/20 13:35 Dose: Not Given Documented by: A/P Narrative A/P Narrative: * Severe sepsis with hypotension and endorgan dysfunction. Clinical improvement noted with aggressive crystalloids and management per guidelines. White count downtrending. Not needing vasopressors * Acute diverticulitis -clinically improving on antibiotic coverage. History of colon cancer. Once acute flare resolves will require outpatient follow-up with GI for colonoscopy * Acute renal failure secondary to sepsis endorgan dysfunction.Creatinine downtrending from 2.8-2.2 * Prerenal azotemia-clinically improving on crystalloids * History of hypertension continue holding antihypertensives until shock resolves * History of reactive airway disease continue bronchodilators * Neuropathy continue gabapentin * History of CAD continue isosorbide/statin. On pacemaker * GERD continue PPI * Restless leg syndrome continue ropinirole * DNR * Reflux heparin Plan * Continue antibiotics * Monitor renal function * Pre-existing medical condition management home medication except for antihypertensives will be held * full liquid diet * Schedule colonoscopy on discharge in 2 to 4 weeks * Discharge planning per case management Time Spent With Patient Time: Total time spent is greater than 50% in coordination of care (as documented) at patient's floor/unit and/or counseling patient: QUALITY VTE Deep Vein Thrombosis/Pulmonary Embolism Present on Admission: No
[2020-06-12] MEDS: MELATONIN 3 MG TABLET PO PRN (21:00)
[2020-06-12] MEDS: SENNOSIDES/DOCUSATE SODIUM 1 TAB TABLET PO SCH (21:00)
[2020-06-13] MEDS: PIPERACILLIN SODIUM/TAZOBACTAM 2.25 GM in DEXTROSE 5% IN WATER 50 ML IV SCH ×5 (00:14→23:40)
[2020-06-13] MEDS: 0.9 % SODIUM CHLORIDE 10 ML SYRINGE IV SCH ×3 (05:00→23:40)
[2020-06-13] MEDS: 0.9 % SODIUM CHLORIDE 1,000 ML IV SCH ×4 (06:24→20:26)
[2020-06-13 06:26] LABS: Basophils # (Auto) 0.08 K/mcL (0.00-0.20); Basophils % (Auto) 0.7 % (0.0-2.0); Eosinophils # (Auto) 0.41 K/mcL (0.00-0.70); Eosinophils % (Auto) 3.6 % (0.0-7.0); Hematocrit 40.3 % (41.0-55.0); Hemoglobin 12.6 g/dL (13.5-16.5); Lymphocytes # (Auto) 0.93 K/mcL (1.50-4.80); Lymphocytes % (Auto) 8.2 % (15.0-49.0); Mean Cell Volume 97.6 fL (80.0-100.0); Mean Corpuscular HGB Conc 31.3 g/dL (31.0-36.0); Mean Platelet Volume 10.1 fL (7.4-10.4); Monocytes # (Auto) 0.75 K/mcL (0.10-0.90); Monocytes % (Auto) 6.6 % (1.0-12.0); Neutrophils % (Auto) 80.9 % (38.0-78.0); Platelet Count 215 K/mcL (140-440); RBC 4.13 M/mcL (4.50-5.90); Red Cell Distribution Width 14.6 % (11.5-14.5); WBC 11.4 K/mcL (4.5-11.0)
[2020-06-13 06:52] LABS: ALT/SGPT 9 U/L (<40); AST/SGOT 16 U/L (<40); Albumin 2.8 gm/dL (3.2-5.2); Alkaline Phosphatase 58 U/L (39-117); Bilirubin,Direct < 0.2 mg/dL (<0.3); Bilirubin,Total 0.4 mg/dL (0.1-1.0); Blood Urea Nitrogen 25 mg/dL (8-23); Calcium 8.5 mg/dL (8.6-10.4); Carbon Dioxide 24 mmol/L (22-30); Chloride 104 mmol/L (96-108); Globulin 2.7 gm/dL (2.2-3.7); Glomerular Filtration Rate 41; Glucose 78 mg/dL (70-105); Lactate Dehydrogenase 178 U/L (135-225); Phosphorous 2.2 mg/dL (2.5-4.5); Triglycerides 100 mg/dL (<150)
[2020-06-13] MEDS ORDERED: FLU VACC QS2020-21(6MOS UP)/PF 60 MCG/0.5 ML SYRINGE IM ONE (10:00)
[2020-06-13] MEDS ORDERED: PNEUMOCOCCAL 23-VAL P-SAC VAC 0.5 ML SYRINGE IM ONE (10:15)
--- NOTE | 2020-06-13 10:27 | Internal Med Progress Note ---
SUBJECTIVE Subjective Patient information: Note initiated : 06/13/20 at 10:23 am Service Date, if different from initiated Date: [] Patient: Danny Pickard 85 y/o M admitted on 06/11/20 for weakness. Chief Complaint: [] Interval history: Mr. Pickard is a 85 year old M with a history of CKD stage III, colon cancer status post resection/CAD with pacemaker/HTN/anxiety disorder and RAD who lives with his at [facility] at [place]. He was in his baseline state of health until roughly5 days prior to presentation started experiencing abdominal discomfort along with diarrhea 2-3 times a day. Symptoms progressed with increasing nausea, loss of appetite, weakness and lightheadedness limiting his activities of daily living. There after he sustained falls on 3 different occasion fortunately did not sustain major injuries. EMS was called and was found with low blood pressures and saturation. Subsequently brought into the ER Initial work-up was consistent with acute diverticulitis on CT abdomen/white count 12.6, ABG 7.3 2/50/156 on 6 L oxygen, creatinine 2.8(baseline 1.4). Cardiac troponin 0.05 in the setting of renal failure. Patient was started on aggressive crystalloid/antibiotic coverage. Subsequently hospitalist service was consulted At the time of my evaluation patient is accompanied with his . He was able to answer most of the questions. He is in moderate distress but denies abdominal pain/headache photophobia but endorses lightheadedness and dizziness each time he tries to get up. He denies vertigo. He denies recent sick contacts or changes in medications. He denies rash, fever, chills, productive cough, photophobia or neck stiffness 06/12-patient clinically improved. White count down from 12.3-9.2. Renal function improving with creatinine down to 2.2 from 2.8. Improving azotemia. Stable urodynamics. Continuing antibiotic coverage. Intermittently confused but no telemetry events noted. Systolics at goal. Potassium 5.7. Continuing crystalloids. 06/13-continue clinical improvement noted. Creatinine down to 1.5 from 2.8. Potassium downtrending from 5.7-5.2. Phosphorus 2.2 on replacement. Persistent diarrhea, C. difficile negative, hemodynamics stabilized. White count 9.4. Continuing antibiotic coverage. Improving endorgan dysfunction. No overnight telemetry events. Transferring to medical floor. Constitutional Vitals: Vital Signs Temp Pulse Resp BP Pulse Ox 97.1 F 72 21 129/64 94 06/13/20 08:01 06/13/20 08:01 06/13/20 08:01 06/13/20 08:01 06/13/20 08:01 Period Temp Pulse Resp BP Sys/Dominguez Pulse Ox Last 24 Hr 97.1 F-98.2 F 69-93 14-28 92-138/53-102 90-100 Intake and Output 06/12/20 06/13/20 06/13/20 21:59 05:59 13:59 Intake Total 6859 253 8049 Output Total 175 601 200 Balance 875 -431 970 Weight 71.078 kg Alert oriented No anxiety Nonlabored breathing Nontender nondistended abdomen No telemetry events Intake & Output: Intake & Output 06/12/20 06/13/20 06/13/20 21:59 05:59 13:59 Intake Total 1642 400 3719 Output Total 175 601 200 Balance 875 -431 970 Weight 71.078 kg Intake: Nourishment/Supplement quantity 120 (ml) IV 1050 50 1050 Sodium Chloride 0.9% 1,000 ml @ 1000 1000 100 mls/hr IV .Q10H [facility] Rx#: [id number] Zosyn 2.25 gm In Dextrose 5% in 50 50 50 Water 50 ml @ 100 mls/hr IV Q6H [facility] Rx#:[id number] Oral 120 Output: Void Amount 175 250 # of times incontinent of urine 1 Urine/Stool Mix 350 200 Other: Meal Nourishment/Supplement Nourishment/Supplement name Ensure Urine Appearance Clear Clear Urine Color Pale Bright Yellow Urine Odor Normal Normal Stool Size Copious Stool Color Brown Yellow Stool Consistency Soft Loose Formed Watery # Voids 1 # Bowel Movements 1 # of times incontinent of 1 Bowels OBJ DATA Labs CBC & Chem 7: 06/13/20 05:00 06/13/20 05:00 Labs: Abnormal Lab Results 06/13/20 06/13/20 06/12/20 05:00 05:00 05:15 WBC 11.4 H RBC 4.13 L Hgb 12.6 L Hct 40.3 L MCV MCHC RDW 14.6 H Neut % (Auto) 80.9 H Lymph % (Auto) 8.2 L Lymph # (Auto) 0.93 L Absolute Neutrophils 9.19 H Potassium 5.2 H 5.7 H Carbon Dioxide 17 L BUN 25 H 42 H Creatinine 1.5 H 2.2 H Glucose Calcium 8.5 L 8.4 L Phosphorus 2.2 L Magnesium 2.6 H Lactate Dehydrogenase 252 H Troponin T C-Reactive Protein Total Protein 5.5 L Albumin 2.8 L 2.3 L Albumin/Globulin Ratio 0.6 L Procalcitonin 06/12/20 06/11/20 06/11/20 05:15 15:55 15:55 WBC RBC 4.19 L Hgb 13.0 L Hct MCV 102.9 H MCHC 30.2 L RDW 14.9 H Neut % (Auto) Lymph % (Auto) 11.6 L Lymph # (Auto) 1.06 L Absolute Neutrophils Potassium Carbon Dioxide BUN Creatinine Glucose Calcium Phosphorus Magnesium Lactate Dehydrogenase Troponin T 0.05 H* C-Reactive Protein Total Protein Albumin Albumin/Globulin Ratio Procalcitonin 0.20 H 06/11/20 06/11/20 15:55 15:55 WBC 12.3 H RBC 4.33 L Hgb 13.4 L Hct MCV MCHC RDW 14.6 H Neut % (Auto) 81.5 H Lymph % (Auto) 10.3 L Lymph # (Auto) 1.27 L Absolute Neutrophils 10.00 H Potassium 5.2 H Carbon Dioxide BUN 50 H Creatinine 2.8 H Glucose 123 H Calcium Phosphorus Magnesium Lactate Dehydrogenase Troponin T C-Reactive Protein 3.40 H Total Protein Albumin 3.1 L Albumin/Globulin Ratio Procalcitonin Meds: Medications Acetaminophen (Tylenol) 650 mg PO Q4-6HP PRN; Protocol PRN Reason: Per Pain Protocol/Fever > 101 Last Admin: 06/12/20 22:35 Dose: 650 mg Documented by: Albuterol Sulfate (Ventolin) 2 puff INH Q4HP PRN PRN Reason: Shortness Of Breath Atorvastatin Calcium (Lipitor) 20 mg PO QDAY [facility] Last Admin: 06/12/20 10:48 Dose: 20 mg Documented by: Bisacodyl (Dulcolax) 10 mg ID Q2-3DAYS PRN PRN Reason: Constipation Citalopram Hydrobromide (Celexa) 10 mg PO DAILY [facility] Last Admin: 06/12/20 08:52 Dose: 10 mg Documented by: Docusate Sodium (Colace) 100 mg PO BID [facility] Last Admin: 06/12/20 21:00 Dose: 100 mg Documented by: Gabapentin (Neurontin) 300 mg PO BID [facility] Last Admin: 06/12/20 21:00 Dose: 300 mg Documented by: Heparin Sodium (Porcine) (Heparin) 5,000 unit SQ Q12 [facility] Last Admin: 06/12/20 21:00 Dose: 5,000 unit Documented by: Hydromorphone HCl (Dilaudid) 0.25 - 0.5 mg IV Q4HP PRN; Protocol PRN Reason: Per Pain Protocol Potassium Chloride 40 meq/ (Dextrose) 520 mls @ 130 mls/hr IV UD PRN PRN Reason: K+ = or < 3.5 Acetaminophen (Ofirmev) 650 mg in 65 mls @ 130 mls/hr IV Q6HP PRN; Protocol PRN Reason: Per Pain Protocol/Fever > 101 Magnesium Sulfate (Magnesium Sulfate) 2 gm in 50 mls @ 50 mls/hr IV UD PRN PRN Reason: MG = or < 1.7 Sodium Chloride (Sodium Chloride 0.9%) 1,000 mls @ 100 mls/hr IV .Q10H [facility] Last Admin: 06/13/20 09:10 Dose: 100 mls/hr Documented by: Norepinephrine Bitartrate 8 mg (/ Sodium Chloride) 250 mls @ 18.75 mls/hr IV Q14H PRN; Protocol PRN Reason: Keep MAP greater than 65 Sodium Chloride (Sodium Chloride 0.9%) 250 mls @ 20 mls/hr IV .[id number] [facility] Last Admin: 06/12/20 23:00 Dose: Not Given Documented by: Piperacillin Sod/Tazobactam (Sod 2.25 gm/ Dextrose) 50 mls @ 100 mls/hr IV Q6H [facility]; Protocol Last Infusion: 06/13/20 06:24 Dose: Infused Documented by: Melatonin (Melatonin 3mg Tablet) 3 mg PO HSP PRN PRN Reason: Insomnia Last Admin: 06/12/20 21:00 Dose: 3 mg Documented by: Omeprazole (Prilosec) 20 mg PO ACB [facility] Last Admin: 06/12/20 10:48 Dose: 20 mg Documented by: Ondansetron HCl (Zofran Odt) 4 mg SL Q4-6HP PRN; Protocol PRN Reason: Nausea And Vomiting Ondansetron HCl (Zofran) 4 mg IV Q4-6HP PRN; Protocol PRN Reason: Nausea And Vomiting Polyethylene Glycol (Miralax) 17 gm PO DAILYP PRN PRN Reason: Constipation Potassium Chloride (Klor-Con) 40 meq PO DAILYP PRN PRN Reason: K+ < 3.5 Ropinirole HCl (Requip) 0.25 mg PO BID [facility] Last Admin: 06/12/20 21:00 Dose: 0.25 mg Documented by: Senna/Docusate Sodium (Senna Plus Tablet) 1 tab PO HS [facility] Last Admin: 06/12/20 21:00 Dose: 1 tab Documented by: Sodium Chloride (Saline Flush) 10 ml IV Q8 [facility] Last Admin: 06/13/20 05:00 Dose: Not Given Documented by: A/P Narrative A/P Narrative: * Severe sepsis with hypotension and endorgan dysfunction. Clinical resolution noted. Stable hemodynamics. Transfer to medical floor. White count 11.4. On antibiotic coverage. Cultures negative so far. * Acute diverticulitis -clinically improving on antibiotic coverage. History of colon cancer. Once acute flare resolves will require outpatient follow-up with GI for colonoscopy * Acute renal failure secondary to sepsis endorgan dysfunction.creatinine down from 2.8-1.5. * Prerenal azotemia-clinically resolved * History of hypertension -thiazide/EUFEMIA inhibitor on hold. Restart calcium channel leia in 24 hours once systolics in excess of 140. * History of reactive airway disease continue bronchodilators * Neuropathy continue gabapentin * History of CAD continue isosorbide/statin. On pacemaker * GERD continue PPI * Restless leg syndrome continue ropinirole * DNR * Reflux heparin Plan * Continue antibiotics * Continue crystalloids * Pre-existing medical condition management home meds * Gradual diet advancement * Schedule colonoscopy on discharge in 2 to 4 weeks * Discharge planning per case management Time Spent With Patient Time: Total time spent is greater than 50% in coordination of care (as documented) at patient's floor/unit and/or counseling patient: QUALITY VTE Deep Vein Thrombosis/Pulmonary Embolism Present on Admission: No
[2020-06-13] MEDS: CITALOPRAM 20 MG TABLET PO SCH (11:07)
[2020-06-13] MEDS: ATORVASTATIN 20 MG TABLET PO SCH (11:07)
[2020-06-13] MEDS: GABAPENTIN 300 MG CAPSULE PO SCH ×2 (11:08→20:59)
[2020-06-13] MEDS: OMEPRAZOLE 20 MG CAPSULE PO SCH (11:08)
[2020-06-13] MEDS: HEPARIN 5,000 UNIT/ML VIAL SQ SCH ×2 (11:08→21:00)
[2020-06-13] MEDS: 0.9 % SODIUM CHLORIDE 250 ML IV SCH (11:09)
[2020-06-13] MEDS: DOCUSATE SODIUM 100 MG CAPSULE PO SCH ×2 (11:09→21:01)
[2020-06-13] MEDS: rOPINIRole 0.25 MG TABLET PO SCH ×2 (11:09→21:21)
[2020-06-13] MEDS ORDERED: BISACODYL 10 MG SUPP.RECT PR PRN (11:10)
[2020-06-13] MEDS ORDERED: ALBUTEROL SULFATE 200 PUFF INHALER INH PRN (11:10)
[2020-06-13] MEDS ORDERED: ACETAMINOPHEN 650 MG/65 ML BAG IV PRN (11:10)
[2020-06-13] MEDS ORDERED: POTASSIUM CHLORIDE 20 MEQ PACKET PO PRN (11:10)
[2020-06-13] MEDS ORDERED: ONDANSETRON 4 MG ODT TABLET SL PRN (11:10)
[2020-06-13] MEDS ORDERED: 0.9 % SODIUM CHLORIDE 250 ML IV SCH ×2 (11:10)
[2020-06-13] MEDS ORDERED: MAGNESIUM SULFATE 2 GM/50 ML BAG IV PRN (11:10)
[2020-06-13] MEDS ORDERED: ONDANSETRON 4 MG/2 ML VIAL IV PRN (11:10)
[2020-06-13] MEDS ORDERED: POTASSIUM CHLORIDE 40 MEQ in DEXTROSE 5% IN WATER 500 ML IV PRN (11:10)
[2020-06-13] MEDS ORDERED: IPRATROPIUM/ALBUTEROL 3 ML AMPUL.NEB NEB PRN (11:10)
[2020-06-13] MEDS ORDERED: ACETAMINOPHEN 325 MG TABLET PO PRN (11:10)
[2020-06-13] MEDS ORDERED: NOREPINEPHRINE BITARTRATE 8 MG in 0.9 % SODIUM CHLORIDE 242 ML IV PRN (11:10)
[2020-06-13] MEDS ORDERED: HYDROmorphone 0.5 MG/0.5 ML SYRINGE IV PRN (11:10)
[2020-06-13] MEDS ORDERED: POLYETHYLENE GLYCOL 3350 17 GM PACKET PO PRN (11:10)
[2020-06-13] MEDS ORDERED: NITROGLYCERIN 0.4 MG TAB.SUBL SL PRN (11:20)
[2020-06-13] MEDS: IPRATROPIUM/ALBUTEROL SULFATE 1 PUFF INHALER INH SCH ×3 (12:37→21:21)
[2020-06-13] MEDS ORDERED: LOPERAMIDE 2 MG CAPSULE PO PRN (18:43)
[2020-06-13] MEDS: Budesonide-Formoterol [Symbicort] Inhaler INH SCH (19:12)
[2020-06-13] MEDS ORDERED: GABAPENTIN 300 MG CAPSULE PO SCH (21:00)
[2020-06-13] MEDS: MONTELUKAST 10 MG TABLET PO SCH (21:00)
[2020-06-13] MEDS: SENNOSIDES/DOCUSATE SODIUM 1 TAB TABLET PO SCH (21:01)
[2020-06-13] MEDS: MELATONIN 3 MG TABLET PO PRN (21:20)
[2020-06-14] MEDS: 0.9 % SODIUM CHLORIDE 10 ML SYRINGE IV SCH ×3 (05:30→21:35)
[2020-06-14] MEDS: PIPERACILLIN SODIUM/TAZOBACTAM 2.25 GM in DEXTROSE 5% IN WATER 50 ML IV SCH ×4 (05:31→23:20)
[2020-06-14 06:14] LABS: Basophils # (Auto) 0.05 K/mcL (0.00-0.20); Basophils % (Auto) 0.7 % (0.0-2.0); Eosinophils # (Auto) 0.43 K/mcL (0.00-0.70); Eosinophils % (Auto) 6.3 % (0.0-7.0); Hematocrit 41.3 % (41.0-55.0); Hemoglobin 13.2 g/dL (13.5-16.5); Lymphocytes # (Auto) 1.05 K/mcL (1.50-4.80); Lymphocytes % (Auto) 15.3 % (15.0-49.0); Mean Cell Volume 95.4 fL (80.0-100.0); Mean Platelet Volume 9.8 fL (7.4-10.4); Monocytes # (Auto) 0.55 K/mcL (0.10-0.90); Neutrophils % (Auto) 69.7 % (38.0-78.0); Platelet Count 212 K/mcL (140-440); RBC 4.33 M/mcL (4.50-5.90); Red Cell Distribution Width 14.5 % (11.5-14.5); WBC 6.9 K/mcL (4.5-11.0)
[2020-06-14 06:35] LABS: ALT/SGPT 9 U/L (<40); AST/SGOT 13 U/L (<40); Albumin 2.5 gm/dL (3.2-5.2); Albumin/Globulin Ratio 0.8 (1.0-2.3); Alkaline Phosphatase 54 U/L (39-117); Bilirubin,Direct < 0.2 mg/dL (<0.3); Bilirubin,Total 0.3 mg/dL (0.1-1.0); Blood Urea Nitrogen 14 mg/dL (8-23); Calcium 8.3 mg/dL (8.6-10.4); Carbon Dioxide 25 mmol/L (22-30); Chloride 108 mmol/L (96-108); Globulin 3.2 gm/dL (2.2-3.7); Glomerular Filtration Rate 54; Glucose 87 mg/dL (70-105); Lactate Dehydrogenase 155 U/L (135-225); Phosphorous 2.4 mg/dL (2.5-4.5); Triglycerides 84 mg/dL (<150); Uric Acid 2.2 mg/dL (2.5-8.0)
[2020-06-14] MEDS: 0.9 % SODIUM CHLORIDE 1,000 ML IV SCH ×2 (07:34→19:43)
[2020-06-14] MEDS: OMEPRAZOLE 20 MG CAPSULE PO SCH (07:35)
[2020-06-14] MEDS: DOCUSATE SODIUM 100 MG CAPSULE PO SCH ×2 (07:45→19:55)
[2020-06-14] MEDS: GABAPENTIN 300 MG CAPSULE PO SCH ×2 (08:05→19:56)
[2020-06-14] MEDS: amLODIPine 5 MG TABLET PO SCH (08:05)
[2020-06-14] MEDS: rOPINIRole 0.25 MG TABLET PO SCH ×2 (08:05→19:57)
[2020-06-14] MEDS: CITALOPRAM 20 MG TABLET PO SCH (08:05)
[2020-06-14] MEDS: HEPARIN 5,000 UNIT/ML VIAL SQ SCH ×2 (08:05→19:56)
[2020-06-14] MEDS: Budesonide-Formoterol [Symbicort] Inhaler INH SCH ×2 (08:05→19:56)
[2020-06-14] MEDS: ATORVASTATIN 20 MG TABLET PO SCH (08:30)
[2020-06-14] MEDS: RED YEAST RICE 1200 MG PO SCH (08:34)
[2020-06-14] MEDS ORDERED: OMEPRAZOLE 20 MG CAPSULE PO SCH (09:00)
--- NOTE | 2020-06-14 10:25 | Internal Med Progress Note ---
SUBJECTIVE Subjective Patient information: Note initiated : 06/14/20 at 10:22 am Service Date, if different from initiated Date: [] Patient: Danny Pickard 85 y/o M admitted on 06/11/20 for weakness. Chief Complaint: [] Interval history: Mr. Pickard is a 85 year old M with a history of CKD stage III, colon cancer status post resection/CAD with pacemaker/HTN/anxiety disorder and RAD who lives with his at [facility] at [place]. He was in his baseline state of health until roughly5 days prior to presentation started experiencing abdominal discomfort along with diarrhea 2-3 times a day. Symptoms progressed with increasing nausea, loss of appetite, weakness and lightheadedness limiting his activities of daily living. There after he sustained falls on 3 different occasion fortunately did not sustain major injuries. EMS was called and was found with low blood pressures and saturation. Subsequently brought into the ER Initial work-up was consistent with acute diverticulitis on CT abdomen/white count 12.6, ABG 7.3 2/50/156 on 6 L oxygen, creatinine 2.8(baseline 1.4). Cardiac troponin 0.05 in the setting of renal failure. Patient was started on aggressive crystalloid/antibiotic coverage. Subsequently hospitalist service was consulted At the time of my evaluation patient is accompanied with his . He was able to answer most of the questions. He is in moderate distress but denies abdominal pain/headache photophobia but endorses lightheadedness and dizziness each time he tries to get up. He denies vertigo. He denies recent sick contacts or changes in medications. He denies rash, fever, chills, productive cough, photophobia or neck stiffness 06/12-patient clinically improved. White count down from 12.3-9.2. Renal function improving with creatinine down to 2.2 from 2.8. Improving azotemia. Stable urodynamics. Continuing antibiotic coverage. Intermittently confused but no telemetry events noted. Systolics at goal. Potassium 5.7. Continuing crystalloids. 06/13-continue clinical improvement noted. Creatinine down to 1.5 from 2.8. Potassium downtrending from 5.7-5.2. Phosphorus 2.2 on replacement. Persistent diarrhea, C. difficile negative, hemodynamics stabilized. White count 9.4. Continuing antibiotic coverage. Improving endorgan dysfunction. No overnight telemetry events. Transferring to medical floor. 06/14-patient doing a lot better. No overnight fever chills. Stable hemodyna mics. No telemetry events. Continue antibiotic coverage. Diarrhea improving currently on Imodium. Denies abdominal pain fever chills. No family at bedside. Anticipate discharge to [facility] pending clinical improvement likely in 24 to 48 hours Constitutional Vitals: Vital Signs Temp Pulse Resp BP Pulse Ox 97.8 F 80 20 133/70 94 06/14/20 08:00 06/14/20 03:11 06/14/20 08:00 06/14/20 08:00 06/14/20 08:00 Period Temp Pulse Resp BP Sys/Dominguez Pulse Ox Last 24 Hr 97.1 F-98.8 F 74-88 16-20 129-147/70-98 92-96 Intake and Output 06/13/20 06/14/20 06/14/20 21:59 05:59 13:59 Intake Total 1410 1227 143 Output Total 625 527 Balance 785 700 143 Weight 71.804 kg Alert oriented No anxiety Nonlabored breathing No telemetry events Intake & Output: Intake & Output 06/13/20 06/14/20 06/14/20 21:59 05:59 13:59 Intake Total 1410 1227 143 Output Total 625 527 Balance 785 700 143 Weight 71.804 kg Intake: Nourishment/Supplement quantity 120 120 (ml) IV 1050 957 143 Sodium Chloride 0.9% 1,000 ml @ 1000 907 93 100 mls/hr IV .Q10H [facility] Rx#: [id number] Zosyn 2.25 gm In Dextrose 5% in 50 50 50 Water 50 ml @ 100 mls/hr IV Q6H [facility] Rx#:[id number] Oral 240 150 Output: Void Amount 350 525 # of times incontinent of urine 2 Urine/Stool Mix 275 Other: Meal Nourishment/Supplement Nourishment/Supplement Breakfast Percent of Meal Consumed 50% 100% Feeding Ability Independent Assist with Tray Set Up Nourishment/Supplement name Ensure Ensure Urine Appearance Clear Clear Urine Color Bright Yellow Bright Yellow Urine Odor Normal Normal Stool Size Small Stool Color Yellow Brown Stool Consistency Liquid Liquid # of times incontinent of 1 Bowels OBJ DATA Labs CBC & Chem 7: 06/14/20 05:07 06/14/20 05:07 Labs: Abnormal Lab Results 06/14/20 06/14/20 06/13/20 05:07 05:07 05:00 WBC RBC 4.33 L Hgb 13.2 L Hct MCV MCHC RDW Neut % (Auto) Lymph % (Auto) Lymph # (Auto) 1.05 L Absolute Neutrophils Potassium 5.2 H Carbon Dioxide Anion Gap 6.0 L BUN 25 H Creatinine 1.5 H Glucose Uric Acid 2.2 L Calcium 8.3 L 8.5 L Phosphorus 2.4 L 2.2 L Magnesium Lactate Dehydrogenase Troponin T C-Reactive Protein Total Protein 5.7 L 5.5 L Albumin 2.5 L 2.8 L Albumin/Globulin Ratio 0.8 L Procalcitonin 06/13/20 06/12/20 06/12/20 05:00 05:15 05:15 WBC 11.4 H RBC 4.13 L 4.19 L Hgb 12.6 L 13.0 L Hct 40.3 L MCV 102.9 H MCHC 30.2 L RDW 14.6 H 14.9 H Neut % (Auto) 80.9 H Lymph % (Auto) 8.2 L 11.6 L Lymph # (Auto) 0.93 L 1.06 L Absolute Neutrophils 9.19 H Potassium 5.7 H Carbon Dioxide 17 L Anion Gap BUN 42 H Creatinine 2.2 H Glucose Uric Acid Calcium 8.4 L Phosphorus Magnesium 2.6 H Lactate Dehydrogenase 252 H Troponin T C-Reactive Protein Total Protein Albumin 2.3 L Albumin/Globulin Ratio 0.6 L Procalcitonin 06/11/20 06/11/20 06/11/20 15:55 15:55 15:55 WBC RBC Hgb Hct MCV MCHC RDW Neut % (Auto) Lymph % (Auto) Lymph # (Auto) Absolute Neutrophils Potassium 5.2 H Carbon Dioxide Anion Gap BUN 50 H Creatinine 2.8 H Glucose 123 H Uric Acid Calcium Phosphorus Magnesium Lactate Dehydrogenase Troponin T 0.05 H* C-Reactive Protein 3.40 H Total Protein Albumin 3.1 L Albumin/Globulin Ratio Procalcitonin 0.20 H 06/11/20 15:55 WBC 12.3 H RBC 4.33 L Hgb 13.4 L Hct MCV MCHC RDW 14.6 H Neut % (Auto) 81.5 H Lymph % (Auto) 10.3 L Lymph # (Auto) 1.27 L Absolute Neutrophils 10.00 H Potassium Carbon Dioxide Anion Gap BUN Creatinine Glucose Uric Acid Calcium Phosphorus Magnesium Lactate Dehydrogenase Troponin T C-Reactive Protein Total Protein Albumin Albumin/Globulin Ratio Procalcitonin Meds: Medications Acetaminophen (Tylenol) 650 mg PO Q4-6HP PRN; Protocol PRN Reason: Per Pain Protocol/Fever > 101 Albuterol Sulfate (Ventolin) 2 puff INH Q4HP PRN PRN Reason: Shortness Of Breath Albuterol/Ipratropium (Combivent) 1 puff INH QID [facility] Last Admin: 06/13/20 21:21 Dose: Not Given Documented by: Albuterol/Ipratropium (Duoneb) 3 ml NEB QIDP PRN PRN Reason: Shortness Of Breath Amlodipine Besylate (Norvasc) 5 mg PO QDAY [facility] Last Admin: 06/14/20 08:05 Dose: 5 mg Documented by: Atorvastatin Calcium (Lipitor) 20 mg PO QDAY [facility] Bisacodyl (Dulcolax) 10 mg ND Q2-3DAYS PRN PRN Reason: Constipation Citalopram Hydrobromide (Celexa) 10 mg PO DAILY [facility] Last Admin: 06/14/20 08:05 Dose: 10 mg Documented by: Docusate Sodium (Colace) 100 mg PO BID [facility] Last Admin: 06/14/20 07:45 Dose: Not Given Documented by: Gabapentin (Neurontin) 300 mg PO QAM [facility] Last Admin: 06/14/20 08:05 Dose: 300 mg Documented by: Gabapentin (Neurontin) 900 mg PO QHS [facility] Last Admin: 06/13/20 20:59 Dose: 900 mg Documented by: Heparin Sodium (Porcine) (Heparin) 5,000 unit SQ Q12 [facility] Last Admin: 06/14/20 08:05 Dose: 5,000 unit Documented by: Hydromorphone HCl (Dilaudid) 0.25 - 0.5 mg IV Q4HP PRN; Protocol PRN Reason: Per Pain Protocol Sodium Chloride (Sodium Chloride 0.9%) 1,000 mls @ 100 mls/hr IV .Q10H [facility] Last Admin: 06/14/20 07:34 Dose: 100 mls/hr Documented by: Acetaminophen (Ofirmev) 650 mg in 65 mls @ 130 mls/hr IV Q6HP PRN; Protocol PRN Reason: Per Pain Protocol/Fever > 101 Magnesium Sulfate (Magnesium Sulfate) 2 gm in 50 mls @ 50 mls/hr IV UD PRN PRN Reason: MG = or < 1.7 Norepinephrine Bitartrate 8 mg (/ Sodium Chloride) 250 mls @ 18.75 mls/hr IV Q14H PRN; Protocol PRN Reason: Keep MAP greater than 65 Potassium Chloride 40 meq/ (Dextrose) 520 mls @ 130 mls/hr IV UD PRN PRN Reason: K+ = or < 3.5 Piperacillin Sod/Tazobactam (Sod 2.25 gm/ Dextrose) 50 mls @ 100 mls/hr IV Q6H [facility]; Protocol Last Infusion: 06/14/20 06:06 Dose: Infused Documented by: Loperamide HCl (Imodium) 2 mg PO PRN PRN PRN Reason: Diarrhea Last Admin: 06/13/20 21:00 Dose: 2 mg Documented by: Melatonin (Melatonin 3mg Tablet) 3 mg PO HSP PRN PRN Reason: Insomnia Last Admin: 06/13/20 21:20 Dose: 3 mg Documented by: Montelukast Sodium (Singular) 10 mg PO QHS [facility] Last Admin: 06/13/20 21:00 Dose: 10 mg Documented by: Nitroglycerin (Nitrostat) 0.4 mg SL Q5M PRN PRN Reason: Chest Pain Omeprazole (Prilosec) 20 mg PO ACB [facility] Last Admin: 06/14/20 07:35 Dose: 20 mg Documented by: Ondansetron HCl (Zofran Odt) 4 mg SL Q4-6HP PRN; Protocol PRN Reason: Nausea And Vomiting Ondansetron HCl (Zofran) 4 mg IV Q4-6HP PRN; Protocol PRN Reason: Nausea And Vomiting Budesonide- Formoterol [ Symbicort] Inhaler 2 dose INH BID [facility] Last Admin: 06/14/20 08:05 Dose: 2 dose Documented by: Red Yeast Rice 1,200 (Mg Cap) 1 dose PO QDAY [facility] Last Admin: 06/14/20 08:34 Dose: Not Given Documented by: Polyethylene Glycol (Miralax) 17 gm PO DAILYP PRN PRN Reason: Constipation Potassium Chloride (Klor-Con) 40 meq PO DAILYP PRN PRN Reason: K+ < 3.5 Ropinirole HCl (Requip) 0.25 mg PO BID [facility] Last Admin: 06/14/20 08:05 Dose: 0.25 mg Documented by: Senna/Docusate Sodium (Senna Plus Tablet) 1 tab PO HS [facility] Last Admin: 06/13/20 21:01 Dose: Not Given Documented by: Sodium Chloride (Saline Flush) 10 ml IV Q8 [facility] Last Admin: 06/14/20 05:30 Dose: Not Given Documented by: A/P Narrative A/P Narrative: * Severe sepsis with hypotension and endorgan dysfunction. Clinical resolution noted. White count normalized. Continuing antibiotic coverage. Anticipate discharge in 24 hours to SNF with outpatient GI follow-up for colonoscopy * Acute diverticulitis -clinically improving on antibiotic coverage. History of colon cancer. Schedule outpatient follow-up with GI for colonoscopy * Acute renal failure secondary to sepsis endorgan dysfunction.clinically improved. Creatinine down from 2.8-1.5->1.2 . * Prerenal azotemia-clinically resolved * History of hypertension -EUFEMIA inhibitor on hold due to REGGIE. Restart CCB/thiazide * History of reactive airway disease stable on bronchodilators * Neuropathy continue gabapentin * History of CAD continue isosorbide/statin. On pacemaker * GERD continue PPI * Restless leg syndrome continue ropinirole * DNR * Reflux heparin Plan * Continue antibiotics/crystalloid/supportive management * Pre-existing medical condition management home meds * PT OT nutrition support * Restart thiazide * Schedule colonoscopy on discharge in 2 to 4 weeks * Discharge planning per case management Time Spent With Patient Time: Total time spent is greater than 50% in coordination of care (as do cumented) at patient's floor/unit and/or counseling patient: QUALITY VTE Deep Vein Thrombosis/Pulmonary Embolism Present on Admission: No
[2020-06-14] MEDS: IPRATROPIUM/ALBUTEROL SULFATE 1 PUFF INHALER INH SCH ×4 (11:15→19:55)
[2020-06-14] MEDS: HYDROCHLOROTHIAZIDE 25 MG TABLET PO SCH (11:18)
[2020-06-14] MEDS: SENNOSIDES/DOCUSATE SODIUM 1 TAB TABLET PO SCH (19:55)
[2020-06-14] MEDS: MONTELUKAST 10 MG TABLET PO SCH (19:57)
[2020-06-14] MEDS: MELATONIN 3 MG TABLET PO PRN (19:57)
[2020-06-15] MEDS: PIPERACILLIN SODIUM/TAZOBACTAM 2.25 GM in DEXTROSE 5% IN WATER 50 ML IV SCH ×3 (05:10→17:38)
[2020-06-15] MEDS: 0.9 % SODIUM CHLORIDE 10 ML SYRINGE IV SCH ×3 (05:10→22:34)
[2020-06-15] MEDS: 0.9 % SODIUM CHLORIDE 1,000 ML IV SCH ×2 (05:50→16:49)
[2020-06-15 05:51] LABS: Basophils # (Auto) 0.04 K/mcL (0.00-0.20); Basophils % (Auto) 0.5 % (0.0-2.0); Eosinophils # (Auto) 0.31 K/mcL (0.00-0.70); Eosinophils % (Auto) 4.1 % (0.0-7.0); Hematocrit 42.2 % (41.0-55.0); Hemoglobin 13.4 g/dL (13.5-16.5); Lymphocytes # (Auto) 0.94 K/mcL (1.50-4.80); Lymphocytes % (Auto) 12.5 % (15.0-49.0); Mean Cell Volume 95.5 fL (80.0-100.0); Mean Corpuscular HGB Conc 31.8 g/dL (31.0-36.0); Mean Platelet Volume 9.7 fL (7.4-10.4); Monocytes # (Auto) 0.55 K/mcL (0.10-0.90); Monocytes % (Auto) 7.3 % (1.0-12.0); Neutrophils % (Auto) 75.6 % (38.0-78.0); Platelet Count 227 K/mcL (140-440); RBC 4.42 M/mcL (4.50-5.90); Red Cell Distribution Width 14.2 % (11.5-14.5); WBC 7.5 K/mcL (4.5-11.0)
[2020-06-15 06:41] LABS: ALT/SGPT 8 U/L (<40); AST/SGOT 14 U/L (<40); Albumin 2.9 gm/dL (3.2-5.2); Albumin/Globulin Ratio 0.9 (1.0-2.3); Alkaline Phosphatase 55 U/L (39-117); Bilirubin,Direct < 0.2 mg/dL (<0.3); Bilirubin,Total 0.4 mg/dL (0.1-1.0); Blood Urea Nitrogen 8 mg/dL (8-23); Calcium 8.8 mg/dL (8.6-10.4); Carbon Dioxide 27 mmol/L (22-30); Chloride 104 mmol/L (96-108); Globulin 3.1 gm/dL (2.2-3.7); Glomerular Filtration Rate 49; Glucose 94 mg/dL (70-105); Lactate Dehydrogenase 137 U/L (135-225); Phosphorous 2.1 mg/dL (2.5-4.5); Triglycerides 79 mg/dL (<150); Uric Acid 1.9 mg/dL (2.5-8.0)
[2020-06-15] MEDS: OMEPRAZOLE 20 MG CAPSULE PO SCH (07:11)
[2020-06-15] MEDS: IPRATROPIUM/ALBUTEROL SULFATE 1 PUFF INHALER INH SCH ×4 (07:58→22:33)
[2020-06-15] MEDS: DOCUSATE SODIUM 100 MG CAPSULE PO SCH ×2 (07:59→22:33)
[2020-06-15] MEDS: HEPARIN 5,000 UNIT/ML VIAL SQ SCH ×2 (08:07→22:32)
[2020-06-15] MEDS: CITALOPRAM 20 MG TABLET PO SCH (08:07)
[2020-06-15] MEDS: HYDROCHLOROTHIAZIDE 25 MG TABLET PO SCH (08:07)
[2020-06-15] MEDS: GABAPENTIN 300 MG CAPSULE PO SCH ×2 (08:07→22:32)
[2020-06-15] MEDS: amLODIPine 5 MG TABLET PO SCH (08:07)
[2020-06-15] MEDS: Budesonide-Formoterol [Symbicort] Inhaler INH SCH ×2 (08:14→22:33)
[2020-06-15] MEDS: ATORVASTATIN 20 MG TABLET PO SCH (08:14)
[2020-06-15] MEDS: RED YEAST RICE 1200 MG PO SCH (08:14)
[2020-06-15] MEDS: rOPINIRole 0.25 MG TABLET PO SCH ×2 (08:29→22:32)
--- NOTE | 2020-06-15 10:03 | Discharge Summary ---
Discharge Provider Provider Patient information: Note initiated : 06/15/20 at 9:59 am Service Date, if different from initiated Date: [] Patient: Danny Pickard 85 y/o M admitted on 06/11/20 for weakness. Discharge diagnosis * Severe sepsis with hypotension and endorgan dysfunction. Clinically resolved. Continuing antibiotic coverage for additional 14 days. Recommend outpatient GI/surgery follow-up for colonoscopy * Acute diverticulitis -clinically improving on antibiotic coverage. History of colon cancer. Schedule outpatient follow-up with GI/surgery for colonoscopy * Acute renal failure secondary to sepsis endorgan dysfunction.creatinine improved from 2.8-1.5->1.2 . * Prerenal azotemia-clinically resolved * History of hypertension -resume home medications * History of reactive airway disease stable on bronchodilators * Neuropathy continue gabapentin * History of CAD continue isosorbide/statin. On pacemaker * GERD continue PPI * Restless leg syndrome continue ropinirole Brief hospital course Mr. Pickard is a 85 year old M with a history of CKD stage III, colon cancer status post resection/CAD with pacemaker/HTN/anxiety disorder and RAD who lives with his at [facility] at [place]. He was in his baseline state of health un til roughly5 days prior to presentation started experiencing abdominal discomfort along with diarrhea 2-3 times a day. Symptoms progressed with increasing nausea, loss of appetite, weakness and lightheadedness limiting his activities of daily living. There after he sustained falls on 3 different occasion fortunately did not sustain major injuries. EMS was called and was found with low blood pressures and saturation. Subsequently brought into the ER Initial work-up was consistent with acute diverticulitis on CT abdomen/white count 12.6, ABG 7.3 2/50/156 on 6 L oxygen, creatinine 2.8(baseline 1.4). Cardiac troponin 0.05 in the setting of renal failure. Patient was started on aggressive crystalloid/antibiotic coverage. Subsequently hospitalist service was consulted At the time of my evaluation patient is accompanied with his . He was able to answer most of the questions. He is in moderate distress but denies abdominal pain/headache photophobia but endorses lightheadedness and dizziness each time he tries to get up. He denies vertigo. He denies recent sick contacts or changes in medications. He denies rash, fever, chills, productive cough, photophobia or neck stiffness 06/12-patient clinically improved. White count down from 12.3-9.2. Renal function improving with creatinine down to 2.2 from 2.8. Improving azotemia. Stable urodynamics. Continuing antibiotic coverage. Intermittently confused but no telemetry events noted. Systolics at goal. Potassium 5.7. Continuing crystalloids. 06/13-continue clinical improvement noted. Creatinine down to 1.5 from 2.8. Potassium downtrending from 5.7-5.2. Phosphorus 2.2 on replacement. Persistent diarrhea, C. difficile negative, hemodynamics stabilized. White count 9.4. Continuing antibiotic coverage. Improving endorgan dysfunction. No overnight telemetry events. Transferring to medical floor. 06/14-patient doing a lot better. No overnight fever chills. Stable hemodynamics. No telemetry events. Continue antibiotic coverage. Diarrhea improving currently on Imodium. Denies abdominal pain fever chills. No family at bedside. [facility] clinical improvement likely in 24 to 48 hours 06/15-patient doing well. Discharging advised to continue additional 2 weeks of oral antibiotics followed by colonoscopy and surgery follow-up. No overnight events. White count resolved. Tolerating soft diet. Transitioning to SNF for continued posthospitalization rehab, white count 7.5, creatinine down to 1.3 from 2.8. Discharge instructions as below. Date of admission: 06/11/20 21:56 Discharge date: 06/15/20 Primary care physician: Mariela Chang Consults: 06/11/20 Consult to Physician [CONS] Stat Comment: Consulting Provider: Darci Lara Reason For Exam: Physician to Consult Discharge Meds Discharge Medications Home Medications montelukast 10 mg tablet 10 mg PO QHS 05/11/16 [History Confirmed 06/11/20 Last Taken Unknown] amlodipine 5 mg tablet 5 mg PO QDAY 12/24/18 [History Confirmed 06/11/20 Last Taken Unknown] budesonide-formoterol HFA 160 mcg-4.5 mcg/actuation aerosol inhaler 2 puff INHALATION BID 12/24/18 [History Confirmed 06/11/20 Last Taken Unknown] lutein 10 mg tablet 10 mg PO QDAY 12/24/18 [History Confirmed 06/11/20 Last Taken Unknown] nitroglycerin 0.4 mg sublingual tablet 0.4 mg SUBLINGUAL ONCE PRN tab 12/24/18 [History Confirmed 06/12/20 Last Taken Unknown] ropinirole 0.25 mg tablet 0.25 mg PO BID tab 12/24/18 [History Confirmed 06/11 Last Taken Unknown] rosuvastatin 10 mg tablet 10 mg PO QDAY 12/24/18 [History Confirmed 06/11/20 Last Taken Unknown] omeprazole 20 mg capsule,delayed release 20 mg PO QDAY cap 01/18/19 [History C onfirmed 06/12/20 Last Taken Unknown] citalopram 10 mg PO QDAY 06/11/20 [History Confirmed 06/11/20 Last Taken Unknown] coenzyme Q10 10 mg PO QDAY 06/11/20 [History Confirmed 06/12/20 Last Taken Unkno wn] Glucosamine-Chondroitin Complx 1 cap PO QDAY 06/12/20 [History Confirmed 06/12/20 Last Taken Unknown] gabapentin 1,200 mg PO QHS 06/12/20 [History Confirmed 06/12/20 Last Taken Unknown] gabapentin 300 mg PO QAM 06/12/20 [History Confirmed 06/12/20 Last Taken Unknown] ipratropium-albuterol 1 puff INHALATION QID 06/12/20 [History Confirmed 06/12/20 Last Taken Unknown] ipratropium-albuterol See Rx Instructions .ROUTE .COMPLEX 06/12/20 [History Confirmed 06/12/20 Last Taken Unknown] losartan-hydrochlorothiazide 1 tab PO QDAY 06/12/20 [History Confirmed 06/12/20 Last Taken Unknown] omega-3 fatty acids [Fish Oil Concentrate] 1,000 mg PO QDAY 06/12/20 [History Confirmed 06/12/20 Last Taken Unknown] red yeast rice 1,200 mg PO QDAY 06/12/20 [History Confirmed 06/12/20 Last Taken Unknown] ciprofloxacin HCl 500 mg PO Q12H #30 tab 06/15/20 [Rx Last Taken Unknown] metronidazole [Flagyl] 500 mg PO Q8H #45 tab 06/15/20 [Rx Last Taken Unknown] COURSE Hospital Course Hospital course: . Discharge diagnosis: Acute diverticulitis, sepsis Time Spent with Patient Time attestation: Total time spent providing and/or coordinating discharge services: EXAM Constitutional Vitals: Temp Pulse Resp BP Pulse Ox 98.9 F 73 16 112/69 96 06/15/20 04:22 06/15/20 08:14 06/15/20 04:22 06/15/20 08:14 06/15/20 08:14 Discharge Data Data Completed and Pending Labs on day of discharge: Labs from last 24 hours 06/15/20 06/15/20 04:32 04:32 WBC 7.5 RBC 4.42 L Hgb 13.4 L Hct 42.2 MCV 95.5 MCH 30.3 MCHC 31.8 RDW 14.2 Plt Count 227 MPV 9.7 Neut % (Auto) 75.6 Lymph % (Auto) 12.5 L Clare % (Auto) 7.3 Eos % (Auto) 4.1 Baso % (Auto) 0.5 Lymph # (Auto) 0.94 L Clare # (Auto) 0.55 Eos # (Auto) 0.31 Baso # (Auto) 0.04 Absolute Neutrophils 5.68 Sodium 140 Potassium 4.6 Chloride 104 Carbon Dioxide 27 Anion Gap 9.0 BUN 8 Creatinine 1.3 H GFR Calculation 49 Glucose 94 Uric Acid 1.9 L Calcium 8.8 Phosphorus 2.1 L Magnesium 1.8 Total Bilirubin 0.4 Direct Bilirubin < 0.2 GGT 10 AST 14 ALT 8 Alkaline Phosphatase 55 Lactate Dehydrogenase 137 Total Protein 6.0 Albumin 2.9 L Globulin 3.1 Albumin/Globulin Ratio 0.9 L Triglycerides 79 Preliminary micro results at discharge 06/11/20 18:01 Blood Culture - Preliminary Blood 06/11/20 17:54 Blood Culture - Preliminary Blood Discharge Plan Patient/Caregiver Discharge Instructions Activity: increase activity as tolerated Diet: Regular Diet Activity Restrictions/Additional Instructions: Continue antibiotic for additional 14 days Aggressive PT OT ST eval and treatment at [facility] Outpatient surgery follow-up in 2 weeks Outpatient GI follow-up for colonoscopy in 3 to 4 weeks Return to ER worsening abdominal pain nausea vomiting Prescriptions: New ciprofloxacin HCl 500 mg tablet 500 mg PO Q12H Qty: 30 RF: 0 metronidazole [Flagyl] 500 mg tablet 500 mg PO Q8H Qty: 45 RF: 0 Continued Symbicort 160-4.5 mcg/actuation HFA aerosol inhaler 2 puff INHALATION BID RF: 0 amlodipine 5 mg tablet 5 mg PO QDAY RF: 0 ropinirole 0.25 mg tablet 0.25 mg PO BID RF: 0 rosuvastatin 10 mg tablet 10 mg PO QDAY RF: 0 nitroglycerin [Nitrostat] 0.4 mg tablet, sublingual 0.4 mg SUBLINGUAL ONCE PRN (Reason: Chest Pain) RF: 0 lutein 10 mg tablet 10 mg PO QDAY RF: 0 omeprazole 20 mg capsule,delayed release(DR/EC) 20 mg PO QDAY RF: 0 citalopram 10 mg Tablet 10 mg PO QDAY RF: 0 coenzyme Q10 10 mg Capsule 10 mg PO QDAY RF: 0 ipratropium-albuterol 20-100 mcg/actuation Mist 1 puff INHALATION QID RF: 0 ipratropium-albuterol 0.5 mg-3 mg(2.5 mg base)/3 mL Solution For Nebulization See Rx Instructions .ROUTE .COMPLEX RF: 0 Glucosamine-Chondroitin Complx Capsule 1 cap PO QDAY RF: 0 omega-3 fatty acids [Fish Oil Concentrate] 1,000 mg Capsule 1,000 mg PO QDAY RF: 0 red yeast rice 600 mg Capsule 1,200 mg PO QDAY RF: 0 losartan-hydrochlorothiazide 100-25 mg Tablet 1 tab PO QDAY RF: 0 gabapentin 300 mg capsule 300 mg PO QAM RF: 0 gabapentin 300 mg capsule 1,200 mg PO QHS RF: 0 montelukast [Singulair] 10 mg tablet 10 mg PO QHS RF: 0 Follow Up Plan Follow up with: Mariela Chang ARNP [Primary Care Provider] - Patient Disposition: Xfer SNF Prognosis: Fair Rehab Potential: Fair I certify that the patient requires SNF services: Yes Overall status at discharge: patient is progressing back to baseline Discharge Orders: Discharge Order (Routine); Ordered 06/15/20 Ordered By: Darci NI VTE Deep Vein Thrombosis/Pulmonary Embolism Present on Admission: No
[2020-06-15] MEDS: MONTELUKAST 10 MG TABLET PO SCH (22:33)
[2020-06-15] MEDS: SENNOSIDES/DOCUSATE SODIUM 1 TAB TABLET PO SCH (22:33)
[2020-06-16] MEDS: 0.9 % SODIUM CHLORIDE 1,000 ML IV SCH ×2 (00:55→09:43)
[2020-06-16] MEDS: PIPERACILLIN SODIUM/TAZOBACTAM 2.25 GM in DEXTROSE 5% IN WATER 50 ML IV SCH ×2 (00:55→05:10)
[2020-06-16] MEDS: 0.9 % SODIUM CHLORIDE 10 ML SYRINGE IV SCH (05:11)
[2020-06-16 06:59] LABS: Basophils # (Auto) 0.05 K/mcL (0.00-0.20); Basophils % (Auto) 0.8 % (0.0-2.0); Eosinophils # (Auto) 0.41 K/mcL (0.00-0.70); Eosinophils % (Auto) 6.5 % (0.0-7.0); Hematocrit 40.9 % (41.0-55.0); Hemoglobin 13.2 g/dL (13.5-16.5); Lymphocytes # (Auto) 1.07 K/mcL (1.50-4.80); Lymphocytes % (Auto) 16.9 % (15.0-49.0); Mean Cell Volume 94.5 fL (80.0-100.0); Mean Corpuscular HGB Conc 32.3 g/dL (31.0-36.0); Mean Platelet Volume 9.9 fL (7.4-10.4); Monocytes # (Auto) 0.58 K/mcL (0.10-0.90); Monocytes % (Auto) 9.1 % (1.0-12.0); Neutrophils % (Auto) 66.7 % (38.0-78.0); Platelet Count 222 K/mcL (140-440); RBC 4.33 M/mcL (4.50-5.90); WBC 6.4 K/mcL (4.5-11.0)
[2020-06-16 07:31] LABS: ALT/SGPT 13 U/L (<40); AST/SGOT 19 U/L (<40); Albumin 2.9 gm/dL (3.2-5.2); Alkaline Phosphatase 55 U/L (39-117); Bilirubin,Direct < 0.2 mg/dL (<0.3); Bilirubin,Total 0.5 mg/dL (0.1-1.0); Blood Urea Nitrogen 8 mg/dL (8-23); Calcium 8.7 mg/dL (8.6-10.4); Carbon Dioxide 28 mmol/L (22-30); Chloride 102 mmol/L (96-108); Globulin 2.9 gm/dL (2.2-3.7); Glomerular Filtration Rate 54; Glucose 83 mg/dL (70-105); Lactate Dehydrogenase 153 U/L (135-225); Phosphorous 1.8 mg/dL (2.5-4.5); Triglycerides 80 mg/dL (<150); Uric Acid 1.9 mg/dL (2.5-8.0)
[2020-06-16] MEDS: OMEPRAZOLE 20 MG CAPSULE PO SCH (07:57)
[2020-06-16] MEDS: GABAPENTIN 300 MG CAPSULE PO SCH (09:35)
[2020-06-16] MEDS: ATORVASTATIN 20 MG TABLET PO SCH (09:35)
[2020-06-16] MEDS: Budesonide-Formoterol [Symbicort] Inhaler INH SCH (09:35)
[2020-06-16] MEDS: CITALOPRAM 20 MG TABLET PO SCH (09:35)
[2020-06-16] MEDS: rOPINIRole 0.25 MG TABLET PO SCH (09:35)
[2020-06-16] MEDS: amLODIPine 5 MG TABLET PO SCH (09:35)
[2020-06-16] MEDS: HYDROCHLOROTHIAZIDE 25 MG TABLET PO SCH (09:35)
[2020-06-16] MEDS: IPRATROPIUM/ALBUTEROL SULFATE 1 PUFF INHALER INH SCH (09:36)
[2020-06-16] MEDS: DOCUSATE SODIUM 100 MG CAPSULE PO SCH (09:36)
[2020-06-16] MEDS: HEPARIN 5,000 UNIT/ML VIAL SQ SCH (09:36)
[2020-06-16] MEDS: RED YEAST RICE 1200 MG PO SCH (09:38)
== END 2020-06-16 10:08 | DRG 872 ==
LOC: ED 15:26 → ICU 21:56 → MEDSUR 06-15 17:43
PROVIDERS: ADMIT Internal Medicine; ATTEND Internal Medicine